=== PATIENT | male | born 1940 | race African-American/Black ===

== ENCOUNTER 2019-04-28 22:29 | Inpatient (IN) | payer MEDICARE, OTHER ==
--- NOTE | 2019-04-29 00:21 | PDOC ---
History of Present Illness - General Chief Complaint: Altered Mental Status Stated Complaint: AMS Time Seen by Provider: 04/28/19 23:31 - History of Present Illness Initial Comments: 04/29/19 00:19 79 y/o male PMHx atrial fibrillation, HTN, substance abuse with alcohol and cocaine presents sent to the ED by sister because of progressive inability to ambulate over the last 2 weeks and AMS. Pt is poor historian. Reached out to sister who explained above problems. According to her, pt often ambulates with a cane or a walker however lately, he has been staying in bed more as he c/o "being unable to walk". She denies any recent falls or trauma. As pt was poor history, I asked about baseline mental status; sister gave unclear answer but says that he knows his birthday, his name and where he is. Pt and sister also denies any fever, chills, cough, chest pain, SOB, abdominal pain. PSH: L knee surgery Social Hx: As above last use unclear ROS: Constitutional: no fever,no chills HEENT: no throat pain, no dysphagia Cardiovascular: no chest pain, no palpitations Respiratory: no cough shortness of breath Gastrointestinal: no Nausea and vomiting Genitourinary: no dysuria no urgency Musculoskeletal: no myalgia, R knee arthralgia Skin: no bruising Neurologic:no weakness Psych: no agitation, no anxiety PE: VSS GEN: NAD Neuro: AAOx2, CN 2-12 intact, no nystagmus, motor strength 5/5 in all muscle groups, sensation intact throughout, 2+ reflexes in U&L extremities HEENT: PERRLA, moist membrane, clear conjunctiva NECK: no JVD CHEST:vesicular breath sounds b/l HEART:irregularly irregular, no murmur, rubs or gallop ABDOMEN: + BS, soft and flat, NTND Extremities: 2+ pulses, no edema SKIN: no bruises MSK: R knee arthralgia, no joint tenderness Assessment: AMS secondary to delirium vs dementia vs cardiac vs electrolyte abnormality vs infection 04/29/19 00:36 Plan: cbc, cmp, Lactic acid, troponin, UA, Head CT, CXR, b/l Hip Xray, R knee Xray, B12, folate, TSH for reversible causes 04/29/19 01:19 CBC,CMP WBC 6.1 K/mm3 (4.0-10.0) 04/29/19 01:38 RBC 4.48 M/mm3 (4.00-5.60) 04/29/19 01:38 Hgb 14.9 GM/dL (11.7-16.9) 04/29/19 01:38 Hct 44.1 % (35.4-49) 04/29/19 01:38 MCV 98.5 fl (80-96) H 04/29/19 01:38 MCH 33.3 pg (25.7-33.7) 04/29/19 01:38 MCHC 33.8 g/dl (32.0-35.9) 04/29/19 01:38 RDW 13.6 % (11.9-15.9) 04/29/19 01:38 Plt Count 232 K/MM3 (134-434) D 04/29/19 01:38 MPV 9.2 fl (7.5-11.1) 04/29/19 01:38 Absolute Neuts (auto) 4.1 K/mm3 (1.5-8.0) 04/29/19 01:38 Neutrophils % 67.1 % (42.8-82.8) 04/29/19 01:38 Lymphocytes % 22.9 % (8-40) D 04/29/19 01:38 Monocytes % 8.4 % (3.8-10.2) 04/29/19 01:38 Eosinophils % 0.9 % (0-4.5) 04/29/19 01:38 Basophils % 0.7 % (0-2.0) 04/29/19 01:38 Nucleated RBC % 0 % (0-0) 04/29/19 01:38 Sodium 137 mmol/L (136-145) 04/29/19 02:00 Potassium 5.8 mmol/L (3.5-5.1) H 04/29/19 02:00 Chloride 104 mmol/L (98-107) 04/29/19 02:00 Carbon Dioxide 27 mmol/L (21-32) 04/29/19 02:00 Anion Gap 6 MMOL/L (8-16) L 04/29/19 02:00 BUN 13.2 mg/dL (7-18) 04/29/19 02:00 Creatinine 1.1 mg/dL (0.55-1.3) 04/29/19 02:00 Est GFR (CKD-EPI)AfAm 74.65 04/29/19 02:00 Est GFR (CKD-EPI)NonAf 64.41 04/29/19 02:00 POC Glucometer 106 UNITS (80-120) 04/29/19 01:00 Random Glucose 101 mg/dL (74-106) 04/29/19 02:00 Lactic Acid 1.7 mmol/L (0.4-2.0) 04/29/19 02:00 Calcium 9.6 mg/dL (8.5-10.1) 04/29/19 02:00 Total Bilirubin 0.5 mg/dL (0.2-1) 04/29/19 02:00 AST 52 U/L (15-37) H 04/29/19 02:00 ALT 24 U/L (13-61) 04/29/19 02:00 Alkaline Phosphatase 96 U/L (45-117) 04/29/19 02:00 Creatine Kinase 120 U/L (26-308) 04/29/19 02:00 Troponin I 0.02 ng/ml (0.00-0.05) 04/29/19 02:00 Total Protein 7.8 g/dl (6.4-8.2) 04/29/19 02:00 Albumin 3.5 g/dl (3.4-5.0) 04/29/19 02:00 Lipase 114 U/L (73-393) 04/29/19 02:00 hyperkalemia at 5.8 slight hemolyzed, mild AST elevation 52 otherwise normal chem. trop negative EKG with Afib with some TWI in V4-5 will repeat EKG and trend trop no urge to urinate yet - pending UA will repeat potassium at 6 04/29/19 02:57 imaging read by attending and I: b/l hip Xray with no acute fracture noted. Knee Xray with no acute fracture Head CT with e/o brain atrophy and ventricular dilation but no bleed or infarct noted 04/29/19 03:05 will send admission microblog 04/29/19 03:07 repeat EKG with afib and ST/TW abnormalities MDM 79 y/o male PMHx atrial fibrillation, HTN, substance abuse with alcohol and cocaine presents sent to the ED by sister because of progressive inability to ambulate over the last 2 weeks and AMS. With new TWI on EKG will need to r/o ACS. AMS may be due to dementia as per finding on CT 04/29/19 03:45 Pt admitted to tele Past History - Past Medical History Allergies/Adverse Reactions: Allergies Allergy/AdvReac Type Severity Reaction Status Date / Time No Known Allergies Allergy Verified 04/28/19 22:34 Home Medications: Ambulatory Orders Acetaminophen [Tylenol -] 500 mg PO Q4H #30 tablet 04/11/15 Diltiazem Cd [Cardizem Cd -] 120 mg PO DAILY #30 cap.cd.24h 12/14/15 Cardiac Disorders: Yes (Atrial Fibrillation) COPD: No - Immunization History Immunization Up to Date: No - Psycho Social/Smoking Cessation Hx Smoking History: Never smoked Have you smoked in the past 12 months: Yes Number of Cigarettes Smoked Daily: 5 'Breaking Loose' booklet given: 08/31/13 Hx Alcohol Use: No Drug/Substance Use Hx: No Substance Use Type: Alcohol, Cocaine *Physical Exam - Vital Signs Last Vital Signs Temp Pulse Resp BP Pulse Ox 98.7 F 95 H 18 133/89 97 04/28/19 22:31 04/28/19 22:31 04/28/19 22:31 04/28/19 22:31 04/28/19 22:31 ED Treatment Course - LABORATORY CBC & Chemistry Diagram: 04/29/19 01:38 04/29/19 02:00 Discharge - Discharge Information Problems reviewed: Yes Clinical Impression/Diagnosis: T wave inversion in electrocardiogram AMS (altered mental status) Qualifiers: Altered mental status type: unspecified Qualified Code(s): R41.82 - Altered mental status, unspecified Condition: Stable - Admission Yes - Follow up/Referral - Patient Discharge Instructions - Post Discharge Activity
[2019-04-29] MEDS ORDERED: SODIUM CHLORIDE 1,000 ML IV STA (01:57)
[2019-04-29 02:20] LABS: BASO % 0.7 % (0-2.0); EOS % 0.9 % (0-4.5); HEMATOCRIT 44.1 % (35.4-49); HEMOGLOBIN 14.9 GM/dL (11.7-16.9); LYMPH % 22.9 % (8-40); MCH 33.3 pg (25.7-33.7); MCHC 33.8 g/dl (32.0-35.9); MEAN CELL VOLUME 98.5 fl (80-96); MEAN PLT VOLUME 9.2 fl (7.5-11.1); MONO % 8.4 % (3.8-10.2); NEUT % 67.1 % (42.8-82.8); PLATELET COUNT 232 K/MM3 (134-434); RBC 4.48 M/mm3 (4.00-5.60); RDW 13.6 % (11.9-15.9); WHITE BLOOD COUNT 6.1 K/mm3 (4.0-10.0)
[2019-04-29 02:45] LABS: ALBUMIN 3.5 g/dl (3.4-5.0); BILIRUBIN,TOTAL 0.5 mg/dL (0.2-1); BLOOD UREA NITROGEN 13.2 mg/dL (7-18); CALCIUM 9.6 mg/dL (8.5-10.1); CREATININE 1.1 mg/dL (0.55-1.3); POTASSIUM 5.8 mmol/L (3.5-5.1); TOT PROT 7.8 g/dl (6.4-8.2)
--- NOTE | 2019-04-29 04:06 | PN ---
Teaching Attending Note Name of Resident: Timmy Sinha ATTENDING PHYSICIAN STATEMENT I saw and evaluated the patient. I reviewed the resident's note and discussed the case with the resident. I agree with the resident's findings and plan as documented. SUBJECTIVE: Patient is a 79 year old man with a PMH of Atrial fibrillation, HTN and Polysubstance abuse (alcohol, cocaine) who presents sent to the ED with sister because of progressive inability to ambulate over the last 2 weeks and AMS. Patient unable to provide details and his sister helped provide information. According to her, patient often ambulates with a cane or a walker, but lately he has been staying in bed more as he complained of "being unable to walk". She denies any recent falls or trauma. Per baseline mental status sister says that he knows his birthday, his name and where he is. Patient and sister deny any fever, chills, cough, chest pain, SOB, abdominal pain, nausea, vomiting, dysuria or diarrhea. Denies tobacco use. No sick contacts or recent travels. OBJECTIVE: Alert Vital Signs Period Temp Pulse Resp BP Sys/Brown Pulse Ox Last 24 Hr 98.7 F 95 18 133/89 97 HEENT: No Jaundice, eye redness or discharge, PERRLA, EOMI. Normocephalic, atraumatic. External ears are normal and hearing is grossly intact. No nasal discharge. Neck: Supple, nontender. No palpable adenopathy or thyromegaly. No JVD Chest: Good effort. Clear to auscultation and percussion. Heart: Irregularly irregular. No S3, rub or murmur Abdomen: Not distended, soft, nontender and no HSM. No rebound or guarding. Normal bowel sounds. Ext: Peripheral pulses intact. No leg edema. Skin: Warm and dry. No petechiae, rash or ecchymosis. Neuro: Alert. Oriented to person and place. CN 2-12 grossly intact. Sensation grossly intact in all four extremities and DTR are symmetric. Gait cannot be tested for safety reasons. Psych: Appropriate mood and affect. Good insight. Home Medications Medication Instructions Recorded Acetaminophen [Tylenol -] 500 mg PO Q4H #30 tablet 04/11/15 Diltiazem Cd [Cardizem Cd -] 120 mg PO DAILY #30 cap.cd.24h 12/14/15 Abnormal Lab Results 04/29/19 04/29/19 01:38 02:00 MCV 98.5 H Potassium 5.8 H Anion Gap 6 L AST 52 H ASSESSMENT AND PLAN: 1. Altered mental status/Inability to ambulate - Etiology unclear. May be related to alcohol-related chronic COLLE[employer] REP injury. No acute abnormality on hip and knee xrays as well as head CT scan. CXR shows elevated right hemidiaphragm - will get CT abdomen/pelvis and lumbosacral MRI. Implement fall precautions and consult Neurology, PT and remelt worker. Isolated hyperkalemia is unexplained. No EKG changes of hyperkalemia - EKG shows Afib with rate of 82, LVH and possible inferolateral ischemia. Initial troponin is negative. Will rule out ACS. Will repeat K+ stat and treat if still high. In the meantime will continue IV NS to enhance K+ excretion. Urinalysis and urine toxicology pending. Will continue comprehensive care for all of patients comorbid conditions. 2. Alcohol/Polysubstance abuse - Will monitor closely for drug withdrawal. Implement [facility] alcohol withdrawal protocol and do neurochecks. Implement seizure, fall and aspiration precautions. Treat with thiamine and folic acid and monitor electrolytes (Ca,Mg,K,P). Counseled patient about abstaining from alcohol or illicit drugs. Will consult community support specialist and refer to alcohol/drug detox upon discharge. 3. Hypertension - Restart suitable outpatient antihypertensive drugs when clinically appropriate. Revise regimen to ensure [id number] excellent BP control and deputy general counsel patient on the injurious effects of uncontrolled hypertension. Nonpharmacologic measures to control hypertension like weight loss , salt restriction and exercise discussed. Importance of adherence to treatment regimen and attainment of normotension emphasized. 4. DVT prophylaxis - Lovenox 40 mg SQ q 24 hours. 5. Advance directives - Full code
--- NOTE | 2019-04-29 04:29 | HP ---
CHIEF COMPLAINT: Gait Instability PCP: Dr. Bishnu Billy HISTORY OF PRESENT ILLNESS: 79 M PMH Afib, HTN, PSA( alcohol and cocaine) who presents today with gait instability and inability to ambulate. Patient is a poor historian and was brought in by sister who believes he has not been able to take care of himself and progressively unable to ambulate over the past 2 weeks. Patient complains of pain in his right knee, but has no complaints about his ability to walk. His sister reported no recent falls or trauma. ER course was notable for: (1) Hip, and knee x-rays did not show any acute fractures. Head CT prelim report did not show any acute bleeds but commented on small vessel infarcts of the left basal ganglia of indeterminate age which were too small to characterize. Chest X-Ray completed did not show any acute pathology but raised hemidiaphragm. (2) Labs showed hyperkalemia of 5.8 however lab reported hemolysis. (3) EKG showed t-wave inversions of V4 and V5, troponin of 0.02. initially Recent Travel: none PAST MEDICAL HISTORY: Afib, HTN, PSA PAST SURGICAL HISTORY: Denies Social History: Smoking: Denies Alcohol: Denies recent use- says last drink was months ago Drugs: Denies recent use of cocaine, will note date when last use was Lives at home by himself. Has not been able to take care of himself. Allergies No Known Allergies Allergy (Verified 04/28/19 22:34) HOME MEDICATIONS: Home Medications Medication Instructions Recorded Acetaminophen [Tylenol -] 500 mg PO Q4H #30 tablet 04/11/15 Diltiazem Cd [Cardizem Cd -] 120 mg PO DAILY #30 cap.cd.24h 12/14/15 REVIEW OF SYSTEMS CONSTITUTIONAL: Absent: fever, chills, diaphoresis, generalized weakness, malaise, loss of appetite, weight change HEENT: Absent: rhinorrhea, nasal congestion, throat pain, throat swelling, difficulty swallowing, mouth swelling, ear pain, eye pain, visual changes CARDIOVASCULAR: Absent: chest pain, syncope, palpitations, irregular heart rate, lightheadedness , peripheral edema RESPIRATORY: Absent: cough, shortness of breath, dyspnea with exertion, orthopnea, wheezing, stridor, hemoptysis GASTROINTESTINAL: Absent: abdominal pain, abdominal distension, nausea, vomiting, diarrhea, constipation, melena, hematochezia GENITOURINARY: Absent: dysuria, frequency, urgency, hesitancy, hematuria, flank pain, genital pain MUSCULOSKELETAL: Present: knee pain Absent: myalgia, arthralgia, joint swelling, back pain, neck pain SKIN: Absent: rash, itching, pallor HEMATOLOGIC/IMMUNOLOGIC: Absent: easy bleeding, easy bruising, lymphadenopathy, frequent infections ENDOCRINE: Absent: unexplained weight gain, unexplained weight loss, heat intolerance, cold intolerance NEUROLOGIC: Absent: headache, focal weakness or paresthesias, dizziness, unsteady gait, seizure, mental status changes, bladder or bowel incontinence PSYCHIATRIC: Absent: anxiety, depression, suicidal or homicidal ideation, hallucinations. PHYSICAL EXAMINATION Vital Signs - 24 hr 04/28/19 22:31 Temperature 98.7 F Pulse Rate 95 H Respiratory 18 Rate Blood Pressure 133/89 O2 Sat by Pulse 97 Oximetry (%) GENERAL: Awake, alert, oriented to self and place. Disheveled. HEAD: Normal with no signs of trauma. EYES: Pupils equal, round and reactive to light, EOMI. EARS, NOSE, THROAT: Moist mucus membranes. LUNGS: Breath sounds equal, clear to auscultation bilaterally. No wheezes, and no crackles. HEART: Irregularly irregular. ABDOMEN: Soft, nontender, not distended, normoactive bowel sounds, no guarding, no rebound, no masses. MUSCULOSKELETAL: Normal range of motion at all joints. Pain with extension of right hip joint. LOWER EXTREMITIES: 2+ pulses, warm, well-perfused. No calf tenderness. No peripheral edema. NEUROLOGICAL: Cranial nerves II-XII intact. Sensation intact. 5/5 strength upper and lower b/l extremities. PSYCHIATRIC: Cooperative. Good eye contact. Appropriate mood and affect. SKIN: Warm, dry, normal turgor, no rashes or lesions noted, normal capillary refill. Laboratory Results - last 24 hr 04/29/19 04/29/19 04/29/19 01:00 01:38 02:00 WBC 6.1 RBC 4.48 Hgb 14.9 Hct 44.1 MCV 98.5 H MCH 33.3 MCHC 33.8 RDW 13.6 Plt Count 232 D MPV 9.2 Absolute Neuts (auto) 4.1 Neutrophils % 67.1 Lymphocytes % 22.9 D Monocytes % 8.4 Eosinophils % 0.9 Basophils % 0.7 Nucleated RBC % 0 Sodium Potassium Chloride Carbon Dioxide Anion Gap BUN Creatinine Est GFR (CKD-EPI)AfAm Est GFR (CKD-EPI)NonAf POC Glucometer 106 Random Glucose Lactic Acid Calcium Total Bilirubin AST ALT Alkaline Phosphatase Creatine Kinase 120 Troponin I 0.02 Total Protein Albumin Lipase 114 04/29/19 04/29/19 02:00 02:00 WBC RBC Hgb Hct MCV MCH MCHC RDW Plt Count MPV Absolute Neuts (auto) Neutrophils % Lymphocytes % Monocytes % Eosinophils % Basophils % Nucleated RBC % Sodium 137 Potassium 5.8 H Chloride 104 Carbon Dioxide 27 Anion Gap 6 L BUN 13.2 Creatinine 1.1 Est GFR (CKD-EPI)AfAm 74.65 Est GFR (CKD-EPI)NonAf 64.41 POC Glucometer Random Glucose 101 Lactic Acid 1.7 Calcium 9.6 Total Bilirubin 0.5 AST 52 H ALT 24 Alkaline Phosphatase 96 Creatine Kinase Troponin I Total Protein 7.8 Albumin 3.5 Lipase ASSESSMENT/PLAN: 9 M PMH Afib, HTN, PSA( alcohol and cocaine) who presents today with gait instability and inability to ambulate. 1) AMS and difficulty ambulating - Patient reported to not be at baseline mental status, only oriented to self and place. - Was not able to walk patient safely by myself - Head CT negative, X-rays negative of hip and knee - Lumbosacral MRI ordered - PT ordered, fall precautions - Social work consulted - Neurology, Dr. Fair consulted 2) EKG changes, R/O ACS - T wave inversions present but patient complains of no chest pain - Initial Troponin and 2nd troponin 0.02. Will follow 3rd troponin. - K+ initailly 5.8, likely due to hemolysis, repeat of 4.3 3) Alcohol/ PSA - Patient currently denies any recent substance abuse - Utox ordered - Current CIWA is 0, will monitor for withdrawal, start librium/ativan protocol as appropriate. - F/U Mag/Phos 4) Hx of HTN - Patient currently normotensive - Medication reconcillation and restart BP meds when stable 5) Hx of Afib - Not on home a/c - Continue cardizem after medication reconcillation - Continous cardiac monitoring DVT: Lovenox 40 SQ Daily F: Oral Hydration E: Monitor CMP N: Sodium controlled diet Dispo: Admit to telemetry. Visit type - Emergency Visit Emergency Visit: Yes ED Registration Date: 04/29/19 Care time: The patient presented to the Emergency Department on the above date and was hospitalized for further evaluation of their emergent condition. - New Patient This patient is new to me today: Yes Date on this admission: 04/29/19 - Critical Care Critical Care patient: No ATTENDING PHYSICIAN STATEMENT I saw and evaluated the patient. I reviewed the resident's note and discussed the case with the resident. I agree with the resident's findings and plan as documented. SUBJECTIVE: OBJECTIVE: ASSESSMENT AND PLAN:
[2019-04-29] MEDS ORDERED: HEPARIN NA (PORCINE) 5,000 UNITS/ML 1ML VIAL SQ SCH (06:00)
[2019-04-29 06:24] LABS: BLOOD UREA NITROGEN 12.2 mg/dL (7-18); CALCIUM 9.4 mg/dL (8.5-10.1); CREATININE 0.9 mg/dL (0.55-1.3); POTASSIUM 4.2 mmol/L (3.5-5.1)
[2019-04-29] MEDS ORDERED: HEPARIN NA (PORCINE) 5,000 UNITS/ML 1ML VIAL ONE (06:35)
[2019-04-29] MEDS ORDERED: FOLIC ACID 1 MG TABLET (FP) PO ONE (07:45)
[2019-04-29 07:50] LABS: BASO % 0.8 % (0-2.0); EOS % 1.1 % (0-4.5); HEMATOCRIT 40.8 % (35.4-49); HEMOGLOBIN 13.7 GM/dL (11.7-16.9); LYMPH % 29.2 % (8-40); MCHC 33.6 g/dl (32.0-35.9); MEAN CELL VOLUME 98.2 fl (80-96); MEAN PLT VOLUME 9.1 fl (7.5-11.1); MONO % 10.1 % (3.8-10.2); NEUT % 58.8 % (42.8-82.8); PLATELET COUNT 207 K/MM3 (134-434); RBC 4.15 M/mm3 (4.00-5.60); RDW 13.4 % (11.9-15.9); WHITE BLOOD COUNT 4.9 K/mm3 (4.0-10.0)
[2019-04-29 08:03] LABS: URINE APPEARANCE CLEAR; URINE BILIRUBIN NEGATIVE (NEGATIVE); URINE COLOR YELLOW; URINE GLUCOSE (UA) NEGATIVE (NEGATIVE); URINE KETONE TRACE (NEGATIVE); URINE LEUK ESTERASE NEGATIVE (NEGATIVE); URINE NITRITE NEGATIVE (NEGATIVE); URINE PROTEIN TRACE (NEGATIVE)
[2019-04-29 08:18] LABS: MAGNESIUM 1.9 mg/dL (1.8-2.4); PHOSPHOROUS 2.9 mg/dL (2.5-4.9)
[2019-04-29] MEDS: ENOXAPARIN NA (PORCINE) 40 MG/0.4 ML DISP.SYRIN SQ SCH (09:58)
[2019-04-29] MEDS ORDERED: ENOXAPARIN NA (PORCINE) 40 MG/0.4 ML DISP.SYRIN SQ SCH (10:00)
--- NOTE | 2019-04-29 10:13 | PN ---
Physical Exam: SUBJECTIVE: Patient seen and examined at the bedside. Had generalized confusion and confusion about his diagnosis. Endorsed right knee pain. Denied cp, sob, abd pain, n/v/c/d, headaches, dizziness, lightheadedness, fever, chills, focal weakness, numbness, tingling. OBJECTIVE: Vital Signs Period Temp Pulse Resp BP Sys/Brown Pulse Ox Last 24 Hr 98.1 F-98.7 F 92-95 18-20 133-157/82-89 97-98 GENERAL: The patient is awake, alert, and oriented to self and "hospital". HEAD: Normal with no signs of trauma. EYES: PERRL, extraocular movements intact, conjunctiva clear. ENT: Oropharynx clear without exudates, dry mucous membranes. LUNGS: Breath sounds equal, clear to auscultation bilaterally, no wheezes, no crackles, no accessory muscle use. HEART: Normal rate and irregular rhythm, S1, S2 without murmur. ABDOMEN: Soft, nontender, nondistended, normoactive bowel sounds, no guarding, no rebound, no masses. EXTREMITIES: 1+ pulses, warm, well-perfused, no edema. Increased pain upon flexion and extension of the R knee. NEUROLOGICAL: Cranial nerves II through XII grossly intact. 4/5 muscle strength bilaterally on the lower extremities. PSYCH: Confused. Pleasant demeanor. SKIN: Warm, dry, normal turgor. Laboratory Results - last 24 hr 04/29/19 04/29/19 04/29/19 01:00 01:38 02:00 WBC 6.1 RBC 4.48 Hgb 14.9 Hct 44.1 MCV 98.5 H MCH 33.3 MCHC 33.8 RDW 13.6 Plt Count 232 D MPV 9.2 Absolute Neuts (auto) 4.1 Neutrophils % 67.1 Lymphocytes % 22.9 D Monocytes % 8.4 Eosinophils % 0.9 Basophils % 0.7 Nucleated RBC % 0 Sodium Potassium Chloride Carbon Dioxide Anion Gap BUN Creatinine Est GFR (CKD-EPI)AfAm Est GFR (CKD-EPI)NonAf POC Glucometer 106 Random Glucose Lactic Acid Calcium Phosphorus Magnesium Total Bilirubin AST ALT Alkaline Phosphatase Creatine Kinase 120 Troponin I 0.02 Total Protein Albumin Lipase 114 Vitamin B12 Serum Folate TSH Urine Color Urine Appearance Urine pH Ur Specific [place] Urine Protein Urine Glucose (UA) Urine Ketones Urine Blood Urine Nitrite Urine Bilirubin Urine Urobilinogen Ur Leukocyte Esterase 04/29/19 04/29/19 04/29/19 02:00 02:00 05:18 WBC RBC Hgb Hct MCV MCH MCHC RDW Plt Count MPV Absolute Neuts (auto) Neutrophils % Lymphocytes % Monocytes % Eosinophils % Basophils % Nucleated RBC % Sodium 137 139 Potassium 5.8 H 4.2 Chloride 104 107 Carbon Dioxide 27 25 Anion Gap 6 L 7 L BUN 13.2 12.2 Creatinine 1.1 0.9 Est GFR (CKD-EPI)AfAm 74.65 95.15 Est GFR (CKD-EPI)NonAf 64.41 82.09 POC Glucometer Random Glucose 101 102 Lactic Acid 1.7 Calcium 9.6 9.4 Phosphorus Magnesium Total Bilirubin 0.5 AST 52 H ALT 24 Alkaline Phosphatase 96 Creatine Kinase Troponin I 0.02 Total Protein 7.8 Albumin 3.5 Lipase Vitamin B12 341 Serum Folate 9 TSH 1.76 Urine Color Urine Appearance Urine pH Ur Specific [place] Urine Protein Urine Glucose (UA) Urine Ketones Urine Blood Urine Nitrite Urine Bilirubin Urine Urobilinogen Ur Leukocyte Esterase 04/29/19 04/29/19 04/29/19 05:45 06:30 06:30 WBC 4.9 RBC 4.15 Hgb 13.7 Hct 40.8 MCV 98.2 H MCH 33.0 MCHC 33.6 RDW 13.4 Plt Count 207 MPV 9.1 Absolute Neuts (auto) 2.9 Neutrophils % 58.8 Lymphocytes % 29.2 D Monocytes % 10.1 Eosinophils % 1.1 Basophils % 0.8 Nucleated RBC % 0 Sodium Potassium Chloride Carbon Dioxide Anion Gap BUN Creatinine Est GFR (CKD-EPI)AfAm Est GFR (CKD-EPI)NonAf POC Glucometer Random Glucose Lactic Acid Calcium Phosphorus 2.9 Magnesium 1.9 Total Bilirubin AST ALT Alkaline Phosphatase Creatine Kinase Troponin I Total Protein Albumin Lipase Vitamin B12 273 Serum Folate 7 TSH 1.43 D Urine Color Urine Appearance Urine pH Ur Specific [place] Urine Protein Urine Glucose (UA) Urine Ketones Urine Blood Urine Nitrite Urine Bilirubin Urine Urobilinogen Ur Leukocyte Esterase 04/29/19 06:55 WBC RBC Hgb Hct MCV MCH MCHC RDW Plt Count MPV Absolute Neuts (auto) Neutrophils % Lymphocytes % Monocytes % Eosinophils % Basophils % Nucleated RBC % Sodium Potassium Chloride Carbon Dioxide Anion Gap BUN Creatinine Est GFR (CKD-EPI)AfAm Est GFR (CKD-EPI)NonAf POC Glucometer Random Glucose Lactic Acid Calcium Phosphorus Magnesium Total Bilirubin AST ALT Alkaline Phosphatase Creatine Kinase Troponin I Total Protein Albumin Lipase Vitamin B12 Serum Folate TSH Urine Color Yellow Urine Appearance Clear Urine pH 5.0 Ur Specific [place] 1.025 Urine Protein Trace Urine Glucose (UA) Negative Urine Ketones Trace H Urine Blood Negative Urine Nitrite Negative Urine Bilirubin Negative Urine Urobilinogen 1.0 Ur Leukocyte Esterase Negative Active Medications Generic Name Dose Route Start Last Admin Trade Name [place] PRN Reason Stop Dose Admin Enoxaparin Sodium 40 mg 04/29/19 10:00 04/29/19 09:58 Lovenox - SQ 40 mg DAILY CHIDI Administration Thiamine HCl 100 mg 04/29/19 22:00 Vitamin B1 - PO HS CHIDI ASSESSMENT/PLAN: Adams Bird is a 79 male with a past medical history of Afib (not on AC), HTN , PSA (alcohol and cocaine) admitted for inability to ambulate. AMS and difficulty ambulating - Patient reported to not be at baseline mental status, only oriented to self and hospital. - Head CT noting moderate atrophy, lacunar infarct of left basal ganglia and left anterior periventricular white matter - X-rays negative of hip and knee - CT lumbar spine ordered - fall precautions - PT eval, walked 5 ft with moderate assistance - Social work consulted - Neurology, Dr. Fair consulted, recs appreciated EKG changes, R/O ACS - T wave inversions present but patient complains of no chest pain - troponins 0.02x3 - K+ initially 5.8, likely due to hemolysis, repeat of 4.3 - cardiology consulted, recs appreciated HTN - Patient currently normotensive - restart cardizem 120mg Afib - Not on home a/c, CHADSVAS 3 - Continue cardizem - cardiology consulted, recs appreciated - will continued aspirin as patient with history of falls and not good candidate for AC - Continous cardiac monitoring Hx of lacunar infarct - start aspirin and statin Prostatic enlargement with thickened urinary bladder - will require urology f/u Bibasilar atelectasis as noted on CT scan - patient currently asymptomatic - PT eval - incentive spirometry - will need outpatient PCP f/u DVT PPX - Lovenox 40 SQ Daily FEN - no standing fluids, encourage oral hydration - continue to monitor electrolytes and replete as necessary - sodium controlled diet Dispo - continue to monitor on telemetry Visit type - Emergency Visit Emergency Visit: Yes ED Registration Date: 04/29/19 Care time: The patient presented to the Emergency Department on the above date and was hospitalized for further evaluation of their emergent condition. - New Patient This patient is new to me today: Yes Date on this admission: 04/29/19 - Critical Care Critical Care patient: No
[2019-04-29 11:06] LABS: COCAINE, UR NEGATIVE ng/ml (CUTOFF=300); METHADONE, UR NEGATIVE ng/ml (CUTOFF=300); OPIATES, URI NEGATIVE ng/ml (CUTOFF=300); PHENCYCLIDINE,URINE NEGATIVE ng/ml (CUTOFF=25); URINE AMPHETAMINES NEGATIVE ng/ml (CUTOFF=500); URINE BARBITURATES NEGATIVE ng/ml (CUTOFF=200); URINE BENZODIAZEPINES NEGATIVE ng/ml (CUTOFF=200)
--- NOTE | 2019-04-29 11:52 | EKG ---
Test Reason : Blood Pressure : / mmHG Vent. Rate : 098 BPM Atrial Rate : 127 BPM P-R Int : 000 ms QRS Dur : 078 ms QT Int : 372 ms P-R-T Axes : 000 061 261 degrees QTc Int : 474 ms POOR DATA QUALITY, INTERPRETATION MAY BE ADVERSELY AFFECTED ATRIAL FIBRILLATION WITH PREMATURE VENTRICULAR OR ABERRANTLY CONDUCTED COMPLEXES VOLTAGE CRITERIA FOR LEFT VENTRICULAR HYPERTROPHY ABNORMAL ECG WHEN COMPARED WITH ECG OF 12-DEC-2015 19:43, T WAVE INVERSION MORE EVIDENT IN INFERIOR LEADS INVERTED T WAVES HAVE REPLACED NONSPECIFIC T WAVE ABNORMALITY IN LATERAL LEADS Confirmed by FREDA DIAS MD ([id number]) on 04/29/2019 11:52:28 AM Referred By: Confirmed By:FREDA DIAS MD
--- NOTE | 2019-04-29 11:52 | EKG ---
Test Reason : Blood Pressure : / mmHG Vent. Rate : 082 BPM Atrial Rate : 416 BPM P-R Int : 000 ms QRS Dur : 078 ms QT Int : 410 ms P-R-T Axes : 000 071 -76 degrees QTc Int : 479 ms POOR DATA QUALITY, INTERPRETATION MAY BE ADVERSELY AFFECTED ATRIAL FIBRILLATION MODERATE VOLTAGE CRITERIA FOR LVH, MAY BE NORMAL VARIANT ABNORMAL ECG WHEN COMPARED WITH ECG OF 29-APR-2019 01:10, T WAVE INVERSION LESS EVIDENT IN LATERAL LEADS Confirmed by FREDA DIAS MD ([id number]) on 04/29/2019 11:51:37 AM Referred By: Confirmed By:FREDA DIAS MD
[2019-04-29] MEDS ORDERED: FLU VACCINE QUAD 60 MCG/0.5 ML (MDV 19-20) IM ONE (14:00)
--- NOTE | 2019-04-29 15:53 | CON.NEURO ---
Consult - Past Medical History Cardio/Vascular: Yes: AFIB. No: Aneurysm, Aortic Insufficiency, Aortic Stenosis , CAD, CHF, Deep Vein Thrombosis, HTN, Hyperlipdemia, [place], Mitral Insufficiency, Mitral Stenosis, Murmur, Pulmonary Hypertension, Other - Alcohol/Substance Use Hx Alcohol Use: Yes - Smoking History Smoking history: Former smoker Have you smoked in the past 12 months: Yes Aproximately how many cigarettes per day: 5 If you are a former smoker, when did you quit?: 6 months ago Home Medications - Allergies Allergies/Adverse Reactions: Allergies Allergy/AdvReac Type Severity Reaction Status Date / Time No Known Allergies Allergy Verified 04/28/19 22:34 - Home Medications Home Medications: Ambulatory Orders Acetaminophen [Tylenol -] 500 mg PO Q4H #30 tablet 04/11/15 Diltiazem Cd [Cardizem Cd -] 120 mg PO DAILY #30 cap.cd.24h 12/14/15 Physical Exam-Neuro Vital Signs: Vital Signs Temperature 98.3 F 04/29/19 15:03 Pulse Rate 86 04/29/19 15:03 Respiratory Rate 22 H 04/29/19 15:03 Blood Pressure 140/86 04/29/19 15:03 O2 Sat by Pulse Oximetry (%) 95 04/29/19 13:46 Labs: CBC, BMP 04/29/19 06:30 04/29/19 05:18 Assessment/Plan CC Balance difficulty HPI 79 year old male history of atrial fibrillation, htn , polysubstance abuse ( alcohol and cocaine). Vignesh lives at home and presented to hospital for difficulty walking. He has not been physical active. He has episode of fecal incontinence, he denies any tingling or numbness or lower extrmeity weakness . Vignesh had ct head and it was wnl. PAST MEDICAL HISTORY: Afib, HTN, PSA PAST SURGICAL HISTORY: Denies Social History: Smoking: Denies Alcohol: Denies recent use- says last drink was months ago Drugs: Denies recent use of cocaine, will note date when last use was Lives at home by himself. Has not been able to take care of himself. Allergies No Known Allergies Allergy (Verified 04/28/19 22:34) HOME MEDICATIONS: Home Medications Medication Instructions Recorded Acetaminophen [Tylenol -] 500 mg PO Q4H #30 tablet 04/11/15 Diltiazem Cd [Cardizem Cd -] 120 mg PO DAILY #30 cap.cd.24h 12/14/15 ROS,FH reviewed in chart NEUROLOGICAL EXAMINATOIN Alert oriented x 3, speech is normal, neck is supple EOMI, pupils reactive no facial asymmetry moving all extrmeity lower extremity there is good strength of hip flexor, extensor , knee flexion and extensor , ankle flexion and extension sensation is normal reflex are grade 1 generalized there is severe quadricep weakness , ftn is normal, hts is midly dysmetric ct head i sunremarkable Assessment/Plan 79 year old male history of atrial fibrillation, htn , polysubstance abuse ( alcohol and cocaine), presnted with chronic slowly difficulty with gait, most likley cerebellar , alcohol related and severe deconditioning Plan: physical therapy ct of L spine can be obtained as per primary team plan folic acid, thiamine and mvi he may need short term rehab there is no need for mri of spine as supsician for cord compression is very low Thanking you so much Moe Fair MD
--- NOTE | 2019-04-29 16:09 | CON.CARD ---
Consult Consult Specialty:: Cardiology Referred by:: Medicine Reason for Consultation:: afib - History of Present Illness Chief Complaint: alt mental status History of Present Illness: 79M h/o afib, HTN, alcohol and cocaine abuse p/w gait instability, altered mental status, fall. Limited hx from pt, poor historian, obtained from chart. 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 No chest pain, palps, dizziness, dyspnea - Past Medical History Cardio/Vascular: Yes: AFIB. No: Aneurysm, Aortic Insufficiency, Aortic Stenosis , CAD, CHF, Deep Vein Thrombosis, HTN, Hyperlipdemia, [place], Mitral Insufficiency, Mitral Stenosis, Murmur, Pulmonary Hypertension, Other - Alcohol/Substance Use Hx Alcohol Use: Yes - Smoking History Smoking history: Former smoker Have you smoked in the past 12 months: Yes Aproximately how many cigarettes per day: 5 If you are a former smoker, when did you quit?: 6 months ago Home Medications - Allergies Allergies/Adverse Reactions: Allergies Allergy/AdvReac Type Severity Reaction Status Date / Time No Known Allergies Allergy Verified 04/28/19 22:34 - Home Medications Home Medications: Ambulatory Orders Diltiazem Cd [Cardizem Cd -] 120 mg PO DAILY #30 cap.cd.24h 12/14/15 Family Medical History Family History: Unremarkable Review of Systems - Review of Systems Constitutional: reports: No Symptoms Eyes: reports: No Symptoms HENT: reports: No Symptoms Neck: reports: No Symptoms Cardiovascular: reports: No Symptoms Respiratory: reports: No Symptoms Gastrointestinal: reports: No Symptoms Genitourinary: reports: No Symptoms Musculoskeletal: reports: No Symptoms Integumentary: reports: No Symptoms Neurological: reports: No Symptoms Endocrine: reports: No Symptoms Hematology/Lymphatic: reports: No Symptoms Psychiatric: reports: No Symptoms Vital Signs: Vital Signs Temperature 98.3 F 04/29/19 15:03 Pulse Rate 86 04/29/19 15:03 Respiratory Rate 22 H 04/29/19 15:03 Blood Pressure 140/86 04/29/19 15:03 O2 Sat by Pulse Oximetry (%) 95 04/29/19 13:46 Constitutional: Yes: No Distress, Calm Eyes: Yes: Conjunctiva Clear, EOM Intact HENT: Yes: Atraumatic, Normocephalic Neck: Yes: Supple, Trachea Midline Respiratory: Yes: Regular, CTA Bilaterally Gastrointestinal: Yes: Normal Bowel Sounds, Soft Cardiovascular: Yes: Pulse Irregular JVD: No Heart Sounds: Yes: S1, S2 Extremities: No: Cold Edema: No Neurological: Yes: Alert Psychiatric: No: Agitated - Other Data Labs, Other Data: CBC, BMP 04/29/19 06:30 04/29/19 05:18 Troponin, BNP 04/29/19 04/29/19 04/29/19 02:00 05:18 12:00 Troponin I 0.02 0.02 < 0.02 Troponin, BNP 04/29/19 04/29/19 04/29/19 02:00 05:18 12:00 Troponin I 0.02 0.02 < 0.02 Assessment/Plan EKG: afib, artifact, PVC, TWI V5-6 CXR: no acute process tele: afib, rate ok abnormal EKG - no signs ACS, however poor historian - EKG with significant artifact as well - trop neg x 3 - check echo alt mental status, gait instability - manage per primary, neuro Afib - cont diltiazem - [id number] warrants AC, however given history of gait instability, falls likely not a candidate for AC - PT evaluation - cont aspirin EtOH, cocaine abuse - manage per primary - denies recent use HTN - cont diltiazem HLD - cont statin
--- NOTE | 2019-04-29 18:41 | PN ---
Teaching Attending Note Name of Resident: Yash Muller ATTENDING PHYSICIAN STATEMENT I saw and evaluated the patient. I reviewed the resident's note and discussed the case with the resident. I agree with the resident's findings and plan as documented. SUBJECTIVE: Patient is comfortable with no acute distress, no shortness of breath. OBJECTIVE: Vital Signs Temperature 98.3 F 04/29/19 15:03 Pulse Rate 86 04/29/19 15:03 Respiratory Rate 22 H 04/29/19 15:03 Blood Pressure 140/86 04/29/19 15:03 O2 Sat by Pulse Oximetry (%) 95 04/29/19 13:46 Initial Vital Signs Temp Pulse Resp BP Pulse Ox 98.7 F 95 H 18 133/89 97 04/28/19 22:31 04/28/19 22:31 04/28/19 22:31 04/28/19 22:31 04/28/19 22:31 GENERAL: The patient is awake, alert, oriented, in no acute distress. HEAD: Normal with no signs of trauma. EYES: PERRL, extraocular movements intact, sclera anicteric, conjunctiva clear. ENT: Ears normal, oropharynx clear without exudates, moist mucous membranes. NECK: Trachea midline, full range of motion, supple. LUNGS: Breath sounds equal, clear to auscultation bilaterally, no wheezes, no crackles, no accessory muscle use. HEART: Regular rate and rhythm, S1, S2 without murmur, rub or gallop. ABDOMEN: Soft, NT,ND, normoactive bowel sounds, no guarding, no rebound, no hepatosplenomegaly, no masses. EXTREMITIES: 2+ pulses, warm, well-perfused, no edema. NEUROLOGICAL: Cranial nerves II through XII grossly intact. Normal speech, gait not observed. PSYCH: Normal mood, normal affect. SKIN: Warm, dry, normal turgor, no rashes or lesions noted CBCD WBC 4.9 K/mm3 (4.0-10.0) 04/29/19 06:30 RBC 4.15 M/mm3 (4.00-5.60) 04/29/19 06:30 Hgb 13.7 GM/dL (11.7-16.9) 04/29/19 06:30 Hct 40.8 % (35.4-49) 04/29/19 06:30 MCV 98.2 fl (80-96) H 04/29/19 06:30 MCHC 33.6 g/dl (32.0-35.9) 04/29/19 06:30 RDW 13.4 % (11.9-15.9) 04/29/19 06:30 Plt Count 207 K/MM3 (134-434) 04/29/19 06:30 MPV 9.1 fl (7.5-11.1) 04/29/19 06:30 CMP Sodium 139 mmol/L (136-145) 04/29/19 05:18 Potassium 4.2 mmol/L (3.5-5.1) 04/29/19 05:18 Chloride 107 mmol/L (98-107) 04/29/19 05:18 Carbon Dioxide 25 mmol/L (21-32) 04/29/19 05:18 Anion Gap 7 MMOL/L (8-16) L 04/29/19 05:18 BUN 12.2 mg/dL (7-18) 04/29/19 05:18 Creatinine 0.9 mg/dL (0.55-1.3) 04/29/19 05:18 Random Glucose 102 mg/dL (74-106) 04/29/19 05:18 Calcium 9.4 mg/dL (8.5-10.1) 04/29/19 05:18 Total Bilirubin 0.5 mg/dL (0.2-1) 04/29/19 02:00 AST 52 U/L (15-37) H 04/29/19 02:00 ALT 24 U/L (13-61) 04/29/19 02:00 Alkaline Phosphatase 96 U/L (45-117) 04/29/19 02:00 Total Protein 7.8 g/dl (6.4-8.2) 04/29/19 02:00 Albumin 3.5 g/dl (3.4-5.0) 04/29/19 02:00 CARDIAC ENZYMES Creatine Kinase 120 U/L (26-308) 04/29/19 02:00 Troponin I < 0.02 ng/ml (0.00-0.05) 04/29/19 12:00 Current Medications Generic Name Dose Route Start Last Admin Trade Name Freq PRN Reason Stop Dose Admin Aspirin 81 mg 04/30/19 10:00 Asa - PO DAILY [facility] Atorvastatin Calcium 40 mg 04/29/19 22:00 Lipitor - PO HS [facility] Diltiazem HCl 120 mg 04/30/19 10:00 Cardizem Cd - PO DAILY [facility] Enoxaparin Sodium 40 mg 04/29/19 10:00 04/29/19 09:58 Lovenox - SQ 40 mg DAILY [facility] Administration Multivitamins/Minerals/Vitamin C 1 tab 04/30/19 10:00 Tab-A-Vit - PO DAILY [facility] Thiamine HCl 100 mg 04/29/19 22:00 Vitamin B1 - PO HS [facility] Home Medications Medication Instructions Recorded Diltiazem Cd [Cardizem Cd -] 120 mg PO DAILY #30 cap.cd.24h 12/14/[address] noting moderate atrophy, lacunar infarct of left basal ganglia and left anterior periventricular white matter X-rays negative of hip and knee ASSESSMENT AND PLAN: Patient is a 79yom with a Pmhx of Afib (not on AC), HTN, PSA (alcohol and cocaine) admitted for inability to ambulate. # AMS : unknown baseline #Difficulty ambulating will order CT lumbar spine ordered, fall precautions Discussed with Neurology, Dr. aFir , will get ct of L-spine to r/o stenosis # EKG changes:T wave inversions , troponins 0.02x3, cardiology consulted, recs appreciated #HTN: restart cardizem 120mg #Afib:on cardizem (Not on home a/c) , CHADSVASC 3, #Hx of lacunar infarct: continue aspirin and statin #Prostatic enlargement with thickened urinary bladder: urology f/u # Bibasilar atelectasis as noted on CT scan, incentive spirometry, asymptomatic , PT eval outpatient PCP f/u DVT PPX: Lovenox 40 SQ Daily
[2019-04-29] MEDS: THIAMINE HCL 100 MG TABLET (FP) PO SCH (22:36)
[2019-04-29] MEDS: ATORVASTATIN CA 40 MG TABLET (FP) PO SCH (22:36)
--- NOTE | 2019-04-30 01:14 | PDOC ---
Documentation entered by Fabian Garcia SCRIBE, acting as scribe for Cruz Michel DO. Cruz Michel DO: This documentation has been prepared by the Jose jasso Nirvannie, SCRIBE, under my direction and personally reviewed by me in its entirety. I confirm that the documentation accurately reflects all work, treatment, procedures, and medical decision making performed by me. Attending Attestation - Resident Resident Name: Sana Mendiola - HPI HPI: 04/29/19 00:51 The patient is a 79 year old male, with a significant past medical history of atrial fibrillation, HTN, polysubstance abuse (alcohol and cocaine), and dementia, who presents to the emergency department with failure to thrive and progressively worsening mental status. As per patients sister, he lives alone and his house is noted to be a mess and he is unable to clean himself with associated decreased mental capacity. Patient is awake and alert to person but, confused. Allergies: NKDA - Physicial Exam PE: 04/29/19 00:52 +GENERAL: Smells of urine, poorly kept. Awake and alert. No acute distress. HEENT: Normocephalic, atraumatic. PERRLA, EOMI. No conjunctival pallor. Sclera are non- icteric. Moist mucous membranes. Oropharynx is clear. NECK: Supple. Full ROM. No JVD. Carotid pulses 2+ and symmetric, without bruits. No thyromegaly. No lymphadenopathy. CARDIOVASCULAR: Regular rate and rhythm. No murmurs, rubs, or gallops. Distal pulses are 2+ and symmetric. PULMONARY: No evidence of respiratory distress. Lungs clear to auscultation bilaterally. No wheezing, rales or rhonchi. ABDOMINAL: Soft. Non-tender. Non-distended. No rebound or guarding. No organomegaly. Normoactive bowel sounds. MUSCULOSKELETAL Normal range of motion at all joints. No bony deformities or tenderness. No CVA tenderness. EXTREMITIES: No cyanosis. No clubbing. No edema. No calf tenderness. SKIN: Warm and dry. Normal capillary refill. No rashes. No jaundice. +NEUROLOGICAL: Alert, awake, alert to person and place but not time, confused. Follows simple commands. Answers simple questions. CN II-XII intact wo gross deficits. When asked what month patient says yes. Unclear baseline. 04/30/19 01:24 - Medical Decision Making 04/29/19 The patient is a 79 year old male, with a significant past medical history of atrial fibrillation, HTN, polysubstance abuse (alcohol and cocaine), and dementia, who presents to the emergency department with failure to thrive and progressively worsening mental status cannot take care of himself as per sister who called ems. Assessment and Plan: Patient presenting for worsening mental status and failure to thrive. Will evaluate for AMS and occult infection. Plan isl CT head UA IV fluids EKG Cardiac enzymes Admission for failure to thrive 04/29/19 01:27 Delay in care chemistry went down for a number of hours and transfer was being initiated when chemistry lab was reinstated. 04/29/19 01:50 EKG depicts atrial fibrillation at 98bpm motion artifact. Nonspecific ST abnormality less than 1mm ST depressions in V5 and V6, PVC, performed at 1:10 04/30/19 01:26
[2019-04-30 08:17] LABS: BASO % 0.5 % (0-2.0); EOS % 2.6 % (0-4.5); HEMATOCRIT 41.8 % (35.4-49); HEMOGLOBIN 14.3 GM/dL (11.7-16.9); LYMPH % 36.7 % (8-40); MCH 33.9 pg (25.7-33.7); MCHC 34.2 g/dl (32.0-35.9); MEAN CELL VOLUME 99.3 fl (80-96); MEAN PLT VOLUME 9.1 fl (7.5-11.1); MONO % 10.2 % (3.8-10.2); PLATELET COUNT 220 K/MM3 (134-434); RBC 4.22 M/mm3 (4.00-5.60); RDW 13.7 % (11.9-15.9); WHITE BLOOD COUNT 4.1 K/mm3 (4.0-10.0)
[2019-04-30 08:32] LABS: BLOOD UREA NITROGEN 9.2 mg/dL (7-18); CALCIUM 9.3 mg/dL (8.5-10.1); CREATININE 0.9 mg/dL (0.55-1.3); MAGNESIUM 1.8 mg/dL (1.8-2.4); PHOSPHOROUS 3.3 mg/dL (2.5-4.9); POTASSIUM 4.2 mmol/L (3.5-5.1)
--- NOTE | 2019-04-30 09:23 | PN ---
Teaching Attending Note Name of Resident: Yash Muller ATTENDING PHYSICIAN STATEMENT I saw and evaluated the patient. I reviewed the resident's note and discussed the case with the resident. I agree with the resident's findings and plan as documented. SUBJECTIVE: Comfortable with no acute distress. OBJECTIVE: Vital Signs Temperature 98.3 F 04/30/19 05:37 Pulse Rate 90 04/30/19 05:37 Respiratory Rate 20 04/30/19 05:37 Blood Pressure 130/85 04/30/19 05:37 O2 Sat by Pulse Oximetry (%) 98 04/29/19 21:00 GENERAL: The patient is awake, alert, oriented, in no acute distress. HEAD: Normal with no signs of trauma. EYES: PERRL, extraocular movements intact, sclera anicteric, conjunctiva clear. ENT: Ears normal, oropharynx clear without exudates, moist mucous membranes. NECK: Trachea midline, full range of motion, supple. LUNGS: Breath sounds equal, clear to auscultation bilaterally, no wheezes, no crackles, no accessory muscle use. HEART: Regular rate and rhythm, S1, S2 without murmur, rub or gallop. ABDOMEN: Soft, NT,ND, normoactive bowel sounds, no guarding, no rebound, no hepatosplenomegaly, no masses. EXTREMITIES: 2+ pulses, warm, well-perfused, no edema. NEUROLOGICAL: Cranial nerves II through XII grossly intact. Normal speech, gait not observed. PSYCH: Normal mood, normal affect. SKIN: Warm, dry, normal turgor, no rashes or lesions noted CBCD WBC 4.1 K/mm3 (4.0-10.0) 04/30/19 06:08 RBC 4.22 M/mm3 (4.00-5.60) 04/30/19 06:08 Hgb 14.3 GM/dL (11.7-16.9) 04/30/19 06:08 Hct 41.8 % (35.4-49) 04/30/19 06:08 MCV 99.3 fl (80-96) H 04/30/19 06:08 MCHC 34.2 g/dl (32.0-35.9) 04/30/19 06:08 RDW 13.7 % (11.9-15.9) 04/30/19 06:08 Plt Count 220 K/MM3 (134-434) 04/30/19 06:08 MPV 9.1 fl (7.5-11.1) 04/30/19 06:08 CMP Sodium 140 mmol/L (136-145) 04/30/19 06:08 Potassium 4.2 mmol/L (3.5-5.1) 04/30/19 06:08 Chloride 107 mmol/L (98-107) 04/30/19 06:08 Carbon Dioxide 29 mmol/L (21-32) 04/30/19 06:08 Anion Gap 5 MMOL/L (8-16) L 04/30/19 06:08 BUN 9.2 mg/dL (7-18) 04/30/19 06:08 Creatinine 0.9 mg/dL (0.55-1.3) 04/30/19 06:08 Random Glucose 87 mg/dL (74-106) 04/30/19 06:08 Calcium 9.3 mg/dL (8.5-10.1) 04/30/19 06:08 Total Bilirubin 0.5 mg/dL (0.2-1) 04/29/19 02:00 AST 52 U/L (15-37) H 04/29/19 02:00 ALT 24 U/L (13-61) 04/29/19 02:00 Alkaline Phosphatase 96 U/L (45-117) 04/29/19 02:00 Total Protein 7.8 g/dl (6.4-8.2) 04/29/19 02:00 Albumin 3.5 g/dl (3.4-5.0) 04/29/19 02:00 CARDIAC ENZYMES Creatine Kinase 120 U/L (26-308) 04/29/19 02:00 Troponin I < 0.02 ng/ml (0.00-0.05) 04/29/19 12:00 Current Medications Generic Name Dose Route Start Last Admin Trade Name Freq PRN Reason Stop Dose Admin Aspirin 81 mg 04/30/19 10:00 Asa - PO DAILY [facility] Atorvastatin Calcium 40 mg 04/29/19 22:00 04/29/19 22:36 Lipitor - PO 40 mg HS [facility] Administration Diltiazem HCl 120 mg 04/30/19 10:00 Cardizem Cd - PO DAILY [facility] Enoxaparin Sodium 40 mg 04/29/19 10:00 04/29/19 09:58 Lovenox - SQ 40 mg DAILY [facility] Administration Multivitamins/Minerals/Vitamin C 1 tab 04/30/19 10:00 Tab-A-Vit - PO DAILY [facility] Thiamine HCl 100 mg 04/29/19 22:00 04/29/19 22:36 Vitamin B1 - PO 100 mg HS [facility] Administration Home Medications Medication Instructions Recorded Diltiazem Cd [Cardizem Cd -] 120 mg PO DAILY #30 cap.cd.24h 12/14/[address] noting moderate atrophy, lacunar infarct of left basal ganglia and left anterior periventricular white matter X-rays negative of hip and knee CT abdomen and pelvis: elevated right hemidiaphram with bibasilar atelectasis, prostatic enlargment with thickened urinary bladder fecal retention ,no evidence of acute pathology within the abdomen or pelvis. LS CT: reviewed disc protrusion contacting the right S1 nerve. ASSESSMENT AND PLAN: Patient is a 79yom with a Pmhx of Afib (not on AC), HTN, PSA (alcohol and cocaine) admitted for inability to ambulate. # AMS : unknown baseline #Difficulty ambulating will order CT lumbar spine ordered, Fall precautions, Discussed with Neurology, Dr. Fair ,Ct of LS : disc protrusion contacting the right S1 nerve # EKG changes:T wave inversions ,troponins 0.02x3, cardiology consulted, recs appreciated #HTN: restart cardizem 120mg #Afib:on cardizem (Not on home a/c) , CHADSVASC 3, #Hx of lacunar infarct: continue aspirin and statin #Prostatic enlargement with thickened urinary bladder: urology f/u # Bibasilar atelectasis as noted on CT scan, incentive spirometry, asymptomatic , PT eval outpatient PCP f/u DVT PPX: Lovenox 40 SQ Daily
[2019-04-30] MEDS ORDERED: ASPIRIN 81 MG CHEWABLE TABLETS PO SCH (10:00)
[2019-04-30] MEDS ORDERED: MULTIVITAMINS (DAILY MVI) TABLET (FP) PO SCH (10:00)
[2019-04-30] MEDS ORDERED: predniSONE 20 MG TABLET (UD) PO SCH (10:00)
--- NOTE | 2019-04-30 10:04 | PN ---
Progress Note (short form) - Note Progress Note: 79 year old male history of atrial fibrillation, htn , polysubstance abuse ( alcohol and cocaine). Vignesh lives at home and presented to hospital for difficulty walking. He has not been physical active. He has episode of fecal incontinence, he denies any tingling or numbness or lower extrmeity weakness . Vignesh had ct head and it was wnl. Vignesh has ct of L spine and there is severe djd. He denies any back pain or new focal neuro symptoms. NEUROLOGICAL EXAMINATOIN Alert oriented x 3, speech is normal, neck is supple EOMI, pupils reactive no facial asymmetry moving all extrmeity lower extremity there is good strength of hip flexor, extensor , knee flexion and extensor , ankle flexion and extension sensation is normal reflex are grade 1 generalized there is severe quadricep weakness , ftn is normal, hts is midly dysmetric ct head i sunremarkable Assessment/Plan 79 year old male history of atrial fibrillation, htn , polysubstance abuse ( alcohol and cocaine), presnted with chronic slowly difficulty with gait, most likley cerebellar , alcohol related and severe deconditioning Plan: physical therapy CT fo L spine showed severe djd folic acid, thiamine and mvi he may need short term rehab At this time, there is no suspician for cord compression,Mri of Spine is not needed Thanking you so much Moe Fair MD
--- NOTE | 2019-04-30 10:05 | PN ---
Progress Note, Physician Chief Complaint: sitting comfortably No CP No SOB tele: AF, 70s - Current Medication List Current Medications: Active Medications Aspirin (Asa -) 81 mg PO DAILY [facility] Atorvastatin Calcium (Lipitor -) 40 mg PO HS [facility] Last Admin: 04/29/19 22:36 Dose: 40 mg Diltiazem HCl (Cardizem Cd -) 120 mg PO DAILY [facility] Enoxaparin Sodium (Lovenox -) 40 mg SQ DAILY [facility] Last Admin: 04/29/19 09:58 Dose: 40 mg Multivitamins/Minerals/Vitamin C (Tab-A-Vit -) 1 tab PO DAILY [facility] Prednisone (Deltasone -) 40 mg PO DAILY [facility] Thiamine HCl (Vitamin B1 -) 100 mg PO HS [facility] Last Admin: 04/29/19 22:36 Dose: 100 mg - Objective Vital Signs: Vital Signs Temperature 98.3 F 04/30/19 05:37 Pulse Rate 90 04/30/19 05:37 Respiratory Rate 20 04/30/19 05:37 Blood Pressure 130/85 04/30/19 05:37 O2 Sat by Pulse Oximetry (%) 98 04/29/19 21:00 Constitutional: Yes: No Distress, Calm Cardiovascular: Yes: Pulse Irregular Respiratory: Yes: CTA Bilaterally Gastrointestinal: Yes: Soft Edema: No Neurological: Yes: Alert, Oriented Labs: CBC, BMP 04/30/19 06:08 04/30/19 06:08 - ....Imaging EKG: Image Reviewed Assessment/Plan Assessment/Plan EKG: afib, artifact, PVC, TWI V5-6 CXR: no acute process tele: afib, rate ok abnormal EKG: - no signs ACS, however poor historian - EKG with significant artifact as well - trop neg x 3 - check echo alt mental status, gait instability: - manage per primary, neuro Afib: rate controlled. Can d/c tele - cont diltiazem - [id number] warrants AC, however given history of gait instability, falls likely not a candidate for AC - PT evaluation - cont aspirin EtOH, cocaine abuse: - manage per primary - denies recent use HTN: - cont diltiazem HLD: - cont statin
[2019-04-30] MEDS: ENOXAPARIN NA (PORCINE) 40 MG/0.4 ML DISP.SYRIN SQ SCH (10:56)
--- NOTE | 2019-04-30 10:58 | ECHO ---
Name: LAUREN ALVAREZ Exam:Adult Echocardiogram Study Date: 04/30/2019 10:07 AM Age: 79 yrs Reason For Study: Abnormal Ekg Height: 69 in Weight: 150 lb BSA: 1.8 m2 MMode/2D Measurements & Calculations RVDd: 2.1 cm Ao root diam: 2.9 cm IVSd: 1.6 cm LA dimension: 4.4 cm LVIDd: 4.0 cm ACS: 1.8 cm LVIDs: 2.5 cm LVPWd: 1.6 cm EDV(Teich): 71.1 ml LVOT diam: 2.0 cm ESV(Teich): 23.4 ml LAV (MOD-bp): 78.0 ml TAPSE: 2.2 cm RV S Alan: 10.5 cm/sec Doppler Measurements & Calculations MV E max alan: 63.2 cm/sec Ao V2 max: 109.8 cm/sec MV A max alan: 21.7 cm/sec Ao max P.8 mmHg MV E/A: 2.9 Ao V2 mean: 75.0 cm/sec MV dec time: 0.20 sec Ao mean P.6 mmHg Ao V2 VTI: 18.0 cm CLIFFORD(I,D): 2.4 cm2 CLIFFORD(V,D): 2.3 cm2 LV V1 max P.8 mmHg MR max alan: 564.7 cm/sec LV V1 mean P.3 mmHg MR max P.6 mmHg LV V1 max: 83.4 cm/sec LV V1 mean: 52.3 cm/sec LV V1 VTI: 14.2 cm SV(LVOT): 43.8 ml TR max alan: 223.0 cm/sec TR max P.3 mmHg PA V2 max: 73.3 cm/sec Med Peak E' Alan: 6.3 cm/sec PA max P.1 mmHg Med E/e': 10.0 PA acc slope: 523.0 cm/sec2 Lat Peak E' Alan: 2.5 cm/sec PA acc time: 0.09 sec Lat E/e': 24.9 PA pr(Accel): 37.8 mmHg Left Ventricle There is moderate concentric left ventricular hypertrophy. The left ventricle is hyperdynamic. Ejecti on Fraction = 65-70%. The left ventricular wall motion is normal. Right Ventricle The right ventricle is normal in size and function. Atria The left atrium is mildly dilated. Mitral Valve The mitral valve is normal in structure and function. There is no mitral valve stenosis. There is mil d mitral regurgitation. Tricuspid Valve The tricuspid valve is normal in structure and function. There is mild tricuspid regurgitation. Right ventricular systolic pressure is normal. Aortic Valve There is mild aortic sclerosis.;. No hemodynamically significant valvular aortic stenosis. No aortic regurgitation is present. Pulmonic Valve The pulmonic valve is not well seen, but is grossly normal. There is no pulmonic valvular stenosis. Great Vessels The aortic root is normal size. Pericardium/Pleura There is no pericardial effusion. Interpretation Summary There is moderate concentric left ventricular hypertrophy. The left ventricle is hyperdynamic. The right ventricle is normal in size and function. The left atrium is mildly dilated. There is mild mitral regurgitation. There is mild tricuspid regurgitation. There is mild aortic sclerosis.; There is no pericardial effusion. MD Garcia *[place] 04/30/2019 10:57 AM
--- NOTE | 2019-04-30 13:25 | PN ---
Physical Exam: SUBJECTIVE: Patient seen and examined at the bedside. Stated he was feeling well , denied fever, chills, cp, sob, abd pain, n/v/c/d, headaches, dizziness, lightheadedness, dysuria. OBJECTIVE: Vital Signs Period Temp Pulse Resp BP Sys/Brown Pulse Ox Last 24 Hr 97.5 F-98.7 F 77-94 20-22 130-158/76-90 95-98 GENERAL: The patient is awake, alert, and oriented to self and "[facility]". HEAD: Normal with no signs of trauma. EYES: PERRL, extraocular movements intact, conjunctiva clear. ENT: Oropharynx clear without exudates, moist mucous membranes. LUNGS: Breath sounds equal, clear to auscultation bilaterally, no wheezes, no crackles, no accessory muscle use. HEART: Normal rate and irregular rhythm, S1, S2 without murmur. ABDOMEN: Soft, nontender, nondistended, normoactive bowel sounds, no guarding, no rebound, no masses. EXTREMITIES: 1+ pulses, warm, well-perfused, no edema. NEUROLOGICAL: Cranial nerves II through XII grossly intact. 4/5 muscle strength bilaterally on the lower extremities. PSYCH: Confused. Pleasant demeanor. SKIN: Warm, dry, normal turgor. Laboratory Results - last 24 hr 04/29/19 04/29/19 04/30/19 12:00 21:35 04:58 WBC RBC Hgb Hct MCV MCH MCHC RDW Plt Count MPV Absolute Neuts (auto) Neutrophils % Lymphocytes % Monocytes % Eosinophils % Basophils % Nucleated RBC % Sodium Potassium Chloride Carbon Dioxide Anion Gap BUN Creatinine Est GFR (CKD-EPI)AfAm Est GFR (CKD-EPI)NonAf POC Glucometer 121 81 Random Glucose Calcium Phosphorus Magnesium Troponin I < 0.02 Triglycerides Cholesterol Total LDL Cholesterol HDL Cholesterol 04/30/19 04/30/19 06:08 06:08 WBC 4.1 RBC 4.22 Hgb 14.3 Hct 41.8 MCV 99.3 H MCH 33.9 H MCHC 34.2 RDW 13.7 Plt Count 220 MPV 9.1 Absolute Neuts (auto) 2.1 Neutrophils % 50.0 Lymphocytes % 36.7 D Monocytes % 10.2 Eosinophils % 2.6 D Basophils % 0.5 Nucleated RBC % 0 Sodium 140 Potassium 4.2 Chloride 107 Carbon Dioxide 29 Anion Gap 5 L BUN 9.2 Creatinine 0.9 Est GFR (CKD-EPI)AfAm 95.15 Est GFR (CKD-EPI)NonAf 82.09 POC Glucometer Random Glucose 87 Calcium 9.3 Phosphorus 3.3 Magnesium 1.8 Troponin I Triglycerides 76 Cholesterol 210 H Total LDL Cholesterol 131 H HDL Cholesterol 56 Active Medications Generic Name Dose Route Start Last Admin Trade Name Freq PRN Reason Stop Dose Admin Aspirin 81 mg 04/30/19 10:00 04/30/19 10:56 Asa - PO 81 mg DAILY [facility] Administration Atorvastatin Calcium 40 mg 04/29/19 22:00 04/29/19 22:36 Lipitor - PO 40 mg HS [facility] Administration Diltiazem HCl 120 mg 04/30/19 10:00 04/30/19 10:56 Cardizem Cd - PO 120 mg DAILY [facility] Administration Enoxaparin Sodium 40 mg 04/29/19 10:00 04/30/19 10:56 Lovenox - SQ 40 mg DAILY [facility] Administration Multivitamins/Minerals/Vitamin C 1 tab 04/30/19 10:00 04/30/19 10:56 Tab-A-Vit - PO 1 tab DAILY [facility] Administration Prednisone 40 mg 04/30/19 10:00 04/30/19 10:56 Deltasone - PO 40 mg DAILY [facility] Administration Thiamine HCl 100 mg 04/29/19 22:00 04/29/19 22:36 Vitamin B1 - PO 100 mg HS [facility] Administration Lumbar CT Findings L2-L3 Circumferential disc bulge extending beyond the contour of the adjacent endplates in all directions including the neural foramina. The disc mildly deforms the ventral aspect of the thecal sac. Hypertrophic facet joint arthropathy with thickened ligamentum flavum. Central spinal canal stenosis. L4-L5. Moderate hypertrophic facet joint arthropathy. No evidence of central spinal canal stenosis. Posterior annular bulge mildly deforming the ventral aspect of the thecal sac. Approximately 3 mm anterior spondylolisthesis of L4 on L5. L5-S1. Hypertrophic facet joint arthropathy. Loss of intervertebral disc space height posteriorly. Broad-based, lateralizing the right side disc protrusion contacting the right S1 nerve. Clinical correlate with history of radiculopathy in the distribution of the right S1 nerve. No evidence of central spinal canal stenosis. No evidence of central spinal canal stenosis at the remaining levels. Facet joint arthropathy ASSESSMENT/PLAN: Adams Bird is a 79 male with a past medical history of Afib (not on AC), HTN , PSA (alcohol and cocaine) admitted for inability to ambulate. AMS and difficulty ambulating - Patient reported to not be at baseline mental status, only oriented to self and hospital. - Head CT noting moderate atrophy, lacunar infarct of left basal ganglia and left anterior periventricular white matter - X-rays negative of hip and knee - CT lumbar spine as above - fall precautions - PT eval, walked 5 ft with moderate assistance - Social work consulted - Neurology, Dr. Fair consulted, recs appreciated EKG changes, R/O ACS - T wave inversions present but patient complains of no chest pain - troponins 0.02x3 - K+ initially 5.8, likely due to hemolysis, repeat of 4.3 - cardiology consulted, recs appreciated Disc protrusion contacting the S1 nerve - prednisone 40mg on 12 day taper by 10mg every 3 days - will require neurosurgery outpatient follow up HTN - Patient currently normotensive - restart cardizem 120mg Afib - Not on home a/c, CHADSVASC 3 - Continue cardizem - cardiology consulted, recs appreciated - will continued aspirin as patient with history of falls and not good candidate for AC - Continous cardiac monitoring - echo noting EF 65-70%, moderate concentric LVH, hyperdynamic LV, mildly dilated left atrium, mild mitral and tricuspid regurg, mild aortic sclerosis Hx of lacunar infarct - start aspirin and statin - elevated LDL - will require liver enzyme check in 2-4 weeks Prostatic enlargement with thickened urinary bladder - will require urology f/u Bibasilar atelectasis as noted on CT scan - patient currently asymptomatic - PT eval - incentive spirometry - will need outpatient PCP f/u DVT PPX - Lovenox 40 SQ Daily FEN - no standing fluids, encourage oral hydration - continue to monitor electrolytes and replete as necessary - sodium controlled diet Dispo - can be transferred to med-surg Visit type - Emergency Visit Emergency Visit: Yes ED Registration Date: 04/29/19 Care time: The patient presented to the Emergency Department on the above date and was hospitalized for further evaluation of their emergent condition. - New Patient This patient is new to me today: No - Critical Care Critical Care patient: No
[2019-04-30] MEDS: ATORVASTATIN CA 40 MG TABLET (FP) PO SCH (21:34)
[2019-04-30] MEDS: THIAMINE HCL 100 MG TABLET (FP) PO SCH (21:34)
[2019-05-01] MEDS: MULTIVITAMINS (DAILY MVI) TABLET (FP) PO SCH (10:36)
[2019-05-01] MEDS: predniSONE 20 MG TABLET (UD) PO SCH (10:36)
[2019-05-01] MEDS: ENOXAPARIN NA (PORCINE) 40 MG/0.4 ML DISP.SYRIN SQ SCH (10:37)
[2019-05-01] MEDS: ASPIRIN 81 MG CHEWABLE TABLETS PO SCH (10:37)
[2019-05-01 16:48] VITALS: BMI 23.0
[2019-05-01] MEDS: THIAMINE HCL 100 MG TABLET (FP) PO SCH (21:35)
[2019-05-01] MEDS: ATORVASTATIN CA 40 MG TABLET (FP) PO SCH (21:35)
--- NOTE | 2019-05-01 21:35 | PN ---
Progress Note (short form) - Note Progress Note: Patient feels comfortable with no acute distress. Vital Signs Temperature 97.7 F 05/01/19 21:32 Pulse Rate 73 05/01/19 21:32 Respiratory Rate 18 05/01/19 21:32 Blood Pressure 152/73 05/01/19 21:32 O2 Sat by Pulse Oximetry (%) 98 05/01/19 21:00 GENERAL: The patient is awake, alert, oriented, in no acute distress. HEAD: Normal with no signs of trauma. EYES: PERRL, extraocular movements intact, sclera anicteric, conjunctiva clear. ENT: Ears normal, oropharynx clear without exudates, moist mucous membranes. NECK: Trachea midline, full range of motion, supple. LUNGS: Breath sounds equal, clear to auscultation bilaterally, no wheezes, no crackles, no accessory muscle use. HEART: irregularly-irregular , S1, S2 without murmur, rub or gallop. ABDOMEN: Soft, NT,ND, normoactive bowel sounds, no guarding, no rebound, no hepatosplenomegaly, no masses. EXTREMITIES: 2+ pulses, warm, well-perfused, no edema. NEUROLOGICAL: Cranial nerves II through XII grossly intact. Normal speech, gait not observed. PSYCH: Normal mood, normal affect. SKIN: Warm, dry, normal turgor, no rashes or lesions noted CBCD WBC 4.1 K/mm3 (4.0-10.0) 04/30/19 06:08 RBC 4.22 M/mm3 (4.00-5.60) 04/30/19 06:08 Hgb 14.3 GM/dL (11.7-16.9) 04/30/19 06:08 Hct 41.8 % (35.4-49) 04/30/19 06:08 MCV 99.3 fl (80-96) H 04/30/19 06:08 MCHC 34.2 g/dl (32.0-35.9) 04/30/19 06:08 RDW 13.7 % (11.9-15.9) 04/30/19 06:08 Plt Count 220 K/MM3 (134-434) 04/30/19 06:08 MPV 9.1 fl (7.5-11.1) 04/30/19 06:08 CMP Sodium 140 mmol/L (136-145) 04/30/19 06:08 Potassium 4.2 mmol/L (3.5-5.1) 04/30/19 06:08 Chloride 107 mmol/L (98-107) 04/30/19 06:08 Carbon Dioxide 29 mmol/L (21-32) 04/30/19 06:08 Anion Gap 5 MMOL/L (8-16) L 04/30/19 06:08 BUN 9.2 mg/dL (7-18) 04/30/19 06:08 Creatinine 0.9 mg/dL (0.55-1.3) 04/30/19 06:08 Random Glucose 87 mg/dL (74-106) 04/30/19 06:08 Calcium 9.3 mg/dL (8.5-10.1) 04/30/19 06:08 Total Bilirubin 0.5 mg/dL (0.2-1) 04/29/19 02:00 AST 52 U/L (15-37) H 04/29/19 02:00 ALT 24 U/L (13-61) 04/29/19 02:00 Alkaline Phosphatase 96 U/L (45-117) 04/29/19 02:00 Total Protein 7.8 g/dl (6.4-8.2) 04/29/19 02:00 Albumin 3.5 g/dl (3.4-5.0) 04/29/19 02:00 CARDIAC ENZYMES Creatine Kinase 120 U/L (26-308) 04/29/19 02:00 Troponin I < 0.02 ng/ml (0.00-0.05) 04/29/19 12:00 Current Medications Generic Name Dose Route Start Last Admin Trade Name Freq PRN Reason Stop Dose Admin Aspirin 81 mg 05/01/19 10:00 05/01/19 10:37 Asa - PO 81 mg DAILY [facility] Administration Atorvastatin Calcium 40 mg 05/01/19 22:00 Lipitor - PO HS [facility] Diltiazem HCl 120 mg 05/01/19 10:00 05/01/19 10:36 Cardizem Cd - PO 120 mg DAILY [facility] Administration Enoxaparin Sodium 40 mg 05/01/19 10:00 05/01/19 10:37 Lovenox - SQ 40 mg DAILY [facility] Administration Multivitamins/Minerals/Vitamin C 1 tab 05/01/19 10:00 05/01/19 10:36 Tab-A-Vit - PO 1 tab DAILY [facility] Administration Prednisone 40 mg 05/01/19 10:00 05/01/19 10:36 Deltasone - PO 40 mg DAILY [facility] Administration Thiamine HCl 100 mg 05/01/19 22:00 Vitamin B1 - PO HS [facility] Home Medications Medication Instructions Recorded Diltiazem Cd [Cardizem Cd -] 120 mg PO DAILY #30 cap.cd.24h 12/14/[address] noting moderate atrophy, lacunar infarct of left basal ganglia and left anterior periventricular white matter X-rays negative of hip and knee ASSESSMENT AND PLAN: Patient is a 79yom with a Pmhx of Afib (not on AC), HTN, PSA (alcohol and cocaine) admitted for inability to ambulate. # AMS : unknown baseline #Difficulty ambulating : improving ,on Steroid for short term since impingment Lumbar CT: the right side disc contacting the right S1 nerve. fall precautions Discussed with Neurology, Dr. Fair , will get ct of L-spine to r/o stenosis # EKG changes; T wave inversions , troponins 0.02x3, cardiology consulted, recs appreciated #HTN: restart cardizem 120mg #Afib: Not on home a/c, CHADSVASC 3, on cardizem #Hx of lacunar infarct: continue aspirin and statin #Prostatic enlargement with thickened urinary bladder: urology f/u # Bibasilar atelectasis as noted on CT scan, incentive spirometry, asymptomatic , PT eval DVT PPX: Lovenox 40 SQ Daily dc planning to rehab in am Visit type - Emergency Visit Emergency Visit: Yes ED Registration Date: 04/29/19 Care time: The patient presented to the Emergency Department on the above date and was hospitalized for further evaluation of their emergent condition. - New Patient This patient is new to me today: No - Critical Care Critical Care patient: No - Discharge Referral Referred to [facility] Med P.C.: No
[2019-05-02] MEDS: predniSONE 20 MG TABLET (UD) PO SCH (09:36)
[2019-05-02] MEDS: MULTIVITAMINS (DAILY MVI) TABLET (FP) PO SCH (09:37)
[2019-05-02] MEDS: ASPIRIN 81 MG CHEWABLE TABLETS PO SCH (09:37)
[2019-05-02] MEDS: ENOXAPARIN NA (PORCINE) 40 MG/0.4 ML DISP.SYRIN SQ SCH (09:37)
--- NOTE | 2019-05-02 10:54 | PN ---
Progress Note (short form) - Note Progress Note: 79 year old male history of atrial fibrillation, htn , polysubstance abuse ( alcohol and cocaine). Vignesh lives at home and presented to hospital for difficulty walking. He has not been physical active. He has episode of fecal incontinence, he denies any tingling or numbness or lower extrmeity weakness . Vignesh had ct head and it was wnl. Vignesh has ct of L spine and there is severe djd. He has no new focal neurological symptoms NEUROLOGICAL EXAMINATOIN Alert oriented x 3, speech is normal, neck is supple EOMI, pupils reactive no facial asymmetry moving all extrmeity lower extremity there is good strength of hip flexor, extensor , knee flexion and extensor , ankle flexion and extension sensation is normal reflex are grade 1 generalized there is severe quadricep weakness , ftn is normal, hts is midly dysmetric ct head i sunremarkable Assessment/Plan 79 year old male history of atrial fibrillation, htn , polysubstance abuse ( alcohol and cocaine), presnted with chronic slowly difficulty with gait, most likley cerebellar , alcohol related and severe deconditioning Plan: physical therapy CT fo L spine showed severe djd, no further work up or treatment at this time folic acid, thiamine and mvi waiting for short term rehab At this time, there is no suspician for cord compression,Mri of Spine is not needed Thanking you so much Moe Fair MD
--- NOTE | 2019-05-02 15:35 | PN ---
Physical Exam: SUBJECTIVE: Patient seen and examined. He reports feeling better than yesterday. He denies chest pain, palpitations, shortness of breath, or weakness. OBJECTIVE: Vital Signs Period Temp Pulse Resp BP Sys/Brown Pulse Ox Last 24 Hr 97.7 F-99 F 65-86 18-19 126-156/66-99 98-99 GENERAL: The patient is awake, alert, and oriented x2, in no acute distress. HEAD: Normal with no signs of trauma. EYES: PERRL, extraocular movements intact, conjunctiva clear. ENT: Ears normal, nares patent, moist mucous membranes. NECK: Trachea midline, full range of motion. LUNGS: Breath sounds equal, clear to auscultation bilaterally, no wheezes. HEART: Regular rate and rhythm, no murmur ABDOMEN: Soft, nontender, nondistended, normoactive bowel sounds. EXTREMITIES: Warm, well-perfused, no edema. 5/5 strength b/l hips, knees, and feet. NEUROLOGICAL: Normal speech, gait not observed. PSYCH: Normal mood, normal affect. SKIN: Warm, dry, normal turgor. Laboratory Results - last 24 hr 05/01/19 05/02/19 22:13 06:59 POC Glucometer 162 96 Active Medications Generic Name Dose Route Start Last Admin Trade Name Freq PRN Reason Stop Dose Admin Aspirin 81 mg 05/01/19 10:00 05/02/19 09:37 Asa - PO 81 mg DAILY [facility] Administration Atorvastatin Calcium 40 mg 05/01/19 22:00 05/01/19 21:35 Lipitor - PO 40 mg HS [facility] Administration Diltiazem HCl 120 mg 05/01/19 10:00 05/02/19 09:37 Cardizem Cd - PO 120 mg DAILY [facility] Administration Enoxaparin Sodium 40 mg 05/01/19 10:00 05/02/19 09:37 Lovenox - SQ 40 mg DAILY [facility] Administration Multivitamins/Minerals/Vitamin C 1 tab 05/01/19 10:05/02/19 09:37 Tab-A-Vit - PO 1 tab DAILY [facility] Administration Prednisone 40 mg 05/01/19 10:00 05/02/19 09:36 Deltasone - PO 40 mg DAILY [facility] Administration Thiamine HCl 100 mg 05/01/19 22:00 05/01/19 21:35 Vitamin B1 - PO 100 mg HS [facility] Administration ASSESSMENT/PLAN: Pt is a 79 y/o male with a-fib (not currently on AC), HTN, and cocaine and alcohol use disorders who is admitted for inability to ambulate. #AMS -A/O x2, unsure of baseline -folic acid, thiamine, and MV -CT left basal ganglia and periventricular white matter lacunar infarct, nothing acute -ASA 81mg -atorvastatin 40mg -neurology following #deconditioning -hip and knee x-rays negative -PT -SNF placement #lumbar DJD -CT L-spine severe DJD -continue prednisone 40mg, last day 05/04/19 no taper #paroxysmal a-fib -CHADSVASC 3, not on home AC- fall risk -continue cardizem -continue ASA 81mg -echo noting EF 65-70%, moderate concentric LVH, hyperdynamic LV, mildly dilated left atrium, mild mitral and tricuspid regurg, mild aortic sclerosis -cards following #EKG changes -r/o ACS -trop negative x3 and asymptomatic -cards following #HTN -well-controlled DVT Ppx Lovenox 40 SQ Daily FEN PO fluids monitor labs sodium-controlled diet Dispo med/surg waiting SNF placement social work placed call out to sister and waiting on callback because pt is unable to make decisions for himself given AMS Visit type - Emergency Visit Emergency Visit: Yes ED Registration Date: 04/29/19 Care time: The patient presented to the Emergency Department on the above date and was hospitalized for further evaluation of their emergent condition. - New Patient This patient is new to me today: Yes Date on this admission: 05/02/19 - Critical Care Critical Care patient: No - Discharge Referral Referred to [facility] Med P.C.: No ATTENDING PHYSICIAN STATEMENT I saw and evaluated the patient. I reviewed the resident's note and discussed the case with the resident. I agree with the resident's findings and plan as documented. SUBJECTIVE: OBJECTIVE: ASSESSMENT AND PLAN:
--- NOTE | 2019-05-02 19:05 | PN ---
Teaching Attending Note Name of Resident: Seda Ren ATTENDING PHYSICIAN STATEMENT I saw and evaluated the patient. I reviewed the resident's note and discussed the case with the resident. I agree with the resident's findings and plan as documented. SUBJECTIVE: Patient is comfortable with no acute distress. Vital Signs Temperature 98.2 F 05/02/19 14:45 Pulse Rate 76 05/02/19 14:45 Respiratory Rate 18 05/02/19 14:45 Blood Pressure 138/80 05/02/19 14:45 O2 Sat by Pulse Oximetry (%) 99 05/02/19 09:00 GENERAL: The patient is awake, alert, unable to answer to questions , in no acute distress. HEAD: Normal with no signs of trauma. EYES: PERRL, extraocular movements intact, sclera anicteric, conjunctiva clear. ENT: Ears normal, oropharynx clear without exudates, moist mucous membranes. NECK: Trachea midline, full range of motion, supple. LUNGS: Breath sounds equal, clear to auscultation bilaterally, no wheezes, no crackles, no accessory muscle use. HEART: irregularly-irregular , S1, S2 +, no murmur, rub or gallop. ABDOMEN: Soft, NT,ND, normoactive bowel sounds, no guarding, no rebound, no hepatosplenomegaly, no masses. EXTREMITIES: 2+ pulses, warm, well-perfused, no edema. NEUROLOGICAL: Cranial nerves II through XII grossly intact. Normal speech, gait not observed. SKIN: Warm, dry, normal turgor, no rashes or lesions noted CBCD WBC 4.1 K/mm3 (4.0-10.0) 04/30/19 06:08 RBC 4.22 M/mm3 (4.00-5.60) 04/30/19 06:08 Hgb 14.3 GM/dL (11.7-16.9) 04/30/19 06:08 Hct 41.8 % (35.4-49) 04/30/19 06:08 MCV 99.3 fl (80-96) H 04/30/19 06:08 MCHC 34.2 g/dl (32.0-35.9) 04/30/19 06:08 RDW 13.7 % (11.9-15.9) 04/30/19 06:08 Plt Count 220 K/MM3 (134-434) 04/30/19 06:08 MPV 9.1 fl (7.5-11.1) 04/30/19 06:08 CMP Sodium 140 mmol/L (136-145) 04/30/19 06:08 Potassium 4.2 mmol/L (3.5-5.1) 04/30/19 06:08 Chloride 107 mmol/L (98-107) 04/30/19 06:08 Carbon Dioxide 29 mmol/L (21-32) 04/30/19 06:08 Anion Gap 5 MMOL/L (8-16) L 04/30/19 06:08 BUN 9.2 mg/dL (7-18) 04/30/19 06:08 Creatinine 0.9 mg/dL (0.55-1.3) 04/30/19 06:08 Random Glucose 87 mg/dL (74-106) 04/30/19 06:08 Calcium 9.3 mg/dL (8.5-10.1) 04/30/19 06:08 Total Bilirubin 0.5 mg/dL (0.2-1) 04/29/19 02:00 AST 52 U/L (15-37) H 04/29/19 02:00 ALT 24 U/L (13-61) 04/29/19 02:00 Alkaline Phosphatase 96 U/L (45-117) 04/29/19 02:00 Total Protein 7.8 g/dl (6.4-8.2) 04/29/19 02:00 Albumin 3.5 g/dl (3.4-5.0) 04/29/19 02:00 CARDIAC ENZYMES Creatine Kinase 120 U/L (26-308) 04/29/19 02:00 Troponin I < 0.02 ng/ml (0.00-0.05) 04/29/19 12:00 Current Medications Generic Name Dose Route Start Last Admin Trade Name Freq PRN Reason Stop Dose Admin Aspirin 81 mg 05/01/19 10:00 05/02/19 09:37 Asa - PO 81 mg DAILY [facility] Administration Atorvastatin Calcium 40 mg 05/01/19 22:00 05/01/19 21:35 Lipitor - PO 40 mg HS [facility] Administration Diltiazem HCl 120 mg 05/01/19 10:00 05/02/19 09:37 Cardizem Cd - PO 120 mg DAILY [facility] Administration Enoxaparin Sodium 40 mg 05/01/19 10:00 05/02/19 09:37 Lovenox - SQ 40 mg DAILY [facility] Administration Multivitamins/Minerals/Vitamin C 1 tab 05/01/19 10:00 05/02/19 09:37 Tab-A-Vit - PO 1 tab DAILY [facility] Administration Prednisone 40 mg 05/01/19 10:00 05/02/19 09:36 Deltasone - PO 40 mg DAILY [facility] Administration Thiamine HCl 100 mg 05/01/19 22:00 05/01/19 21:35 Vitamin B1 - PO 100 mg HS [facility] Administration Home Medications Medication Instructions Recorded Diltiazem Cd [Cardizem Cd -] 120 mg PO DAILY #30 cap.cd.24h 12/14/[address] noting moderate atrophy, lacunar infarct of left basal ganglia and left anterior periventricular white matter X-rays negative of hip and knee ASSESSMENT AND PLAN: Patient is a 79yom with a Pmhx of Afib (not on AC), HTN, PSA (alcohol and cocaine) admitted for inability to ambulate. # AMS : unknown baseline , no new changes #Difficulty ambulating : improving ,on Steroid for short term since impingment Lumbar CT: the right side disc contacting the right S1 nerve. given steroid for 5 days , continue 2 more days, fall precautions. Discussed with Neurology, Dr. Fair . # EKG changes; T wave inversions ,troponins 0.02x3, cardiology consulted, recs appreciated #HTN: restart cardizem 120mg #Afib: Not on home a/c, CHADSVASC 3, on cardizem #Hx of lacunar infarct: continue aspirin and statin #Prostatic enlargement with thickened urinary bladder: urology f/u # Bibasilar atelectasis as noted on CT scan, incentive spirometry, asymptomatic , PT eval DVT PPX: Lovenox 40 SQ Daily dc to rehab in am, waiting for bed.
[2019-05-02] MEDS: ATORVASTATIN CA 40 MG TABLET (FP) PO SCH (22:11)
[2019-05-02] MEDS: THIAMINE HCL 100 MG TABLET (FP) PO SCH (22:11)
--- NOTE | 2019-05-03 08:25 | PN ---
Teaching Attending Note Name of Resident: Yash Muller ATTENDING PHYSICIAN STATEMENT I saw and evaluated the patient. I reviewed the resident's note and discussed the case with the resident. I agree with the resident's findings and plan as documented. SUBJECTIVE: Patient is comfortable with no acute distress. OBJECTIVE: Vital Signs Temperature 98.0 F 05/03/19 06:00 Pulse Rate 55 L 05/03/19 06:00 Respiratory Rate 20 05/03/19 06:00 Blood Pressure 147/73 05/03/19 06:00 O2 Sat by Pulse Oximetry (%) 99 05/02/19 09:00 GENERAL: The patient is awake, alert, unable to answer to questions , in no acute distress. HEAD: Normal with no signs of trauma. EYES: PERRL, extraocular movements intact, sclera anicteric, conjunctiva clear. ENT: Ears normal, oropharynx clear without exudates, moist mucous membranes. NECK: Trachea midline, full range of motion, supple. LUNGS: Breath sounds equal, clear to auscultation bilaterally, no wheezes, no crackles, no accessory muscle use. HEART: irregularly-irregular , S1, S2 +, no murmur, rub or gallop. ABDOMEN: Soft, NT,ND, normoactive bowel sounds, no guarding, no rebound, no hepatosplenomegaly, no masses. EXTREMITIES: 2+ pulses, warm, well-perfused, no edema. NEUROLOGICAL: Cranial nerves II through XII grossly intact. Normal speech, gait not observed. SKIN: Warm, dry, normal turgor, no rashes or lesions noted CBCD WBC 4.1 K/mm3 (4.0-10.0) 04/30/19 06:08 RBC 4.22 M/mm3 (4.00-5.60) 04/30/19 06:08 Hgb 14.3 GM/dL (11.7-16.9) 04/30/19 06:08 Hct 41.8 % (35.4-49) 04/30/19 06:08 MCV 99.3 fl (80-96) H 04/30/19 06:08 MCHC 34.2 g/dl (32.0-35.9) 04/30/19 06:08 RDW 13.7 % (11.9-15.9) 04/30/19 06:08 Plt Count 220 K/MM3 (134-434) 04/30/19 06:08 MPV 9.1 fl (7.5-11.1) 04/30/19 06:08 CMP Sodium 140 mmol/L (136-145) 04/30/19 06:08 Potassium 4.2 mmol/L (3.5-5.1) 04/30/19 06:08 Chloride 107 mmol/L (98-107) 04/30/19 06:08 Carbon Dioxide 29 mmol/L (21-32) 04/30/19 06:08 Anion Gap 5 MMOL/L (8-16) L 04/30/19 06:08 BUN 9.2 mg/dL (7-18) 04/30/19 06:08 Creatinine 0.9 mg/dL (0.55-1.3) 04/30/19 06:08 Random Glucose 87 mg/dL (74-106) 04/30/19 06:08 Calcium 9.3 mg/dL (8.5-10.1) 04/30/19 06:08 Total Bilirubin 0.5 mg/dL (0.2-1) 04/29/19 02:00 AST 52 U/L (15-37) H 04/29/19 02:00 ALT 24 U/L (13-61) 04/29/19 02:00 Alkaline Phosphatase 96 U/L (45-117) 04/29/19 02:00 Total Protein 7.8 g/dl (6.4-8.2) 04/29/19 02:00 Albumin 3.5 g/dl (3.4-5.0) 04/29/19 02:00 CARDIAC ENZYMES Creatine Kinase 120 U/L (26-308) 04/29/19 02:00 Troponin I < 0.02 ng/ml (0.00-0.05) 04/29/19 12:00 Current Medications Generic Name Dose Route Start Last Admin Trade Name Freq PRN Reason Stop Dose Admin Aspirin 81 mg 05/01/19 10:00 05/02/19 09:37 Asa - PO 81 mg DAILY CHIDI Administration Atorvastatin Calcium 40 mg 05/01/19 22:00 05/02/19 22:11 Lipitor - PO 40 mg HS CHIDI Administration Diltiazem HCl 120 mg 05/01/19 10:00 05/02/19 09:37 Cardizem Cd - PO 120 mg DAILY CHIDI Administration Enoxaparin Sodium 40 mg 05/01/19 10:00 05/02/19 09:37 Lovenox - SQ 40 mg DAILY CHIDI Administration Multivitamins/Minerals/Vitamin C 1 tab 05/01/19 10:00 05/02/19 09:37 Tab-A-Vit - PO 1 tab DAILY CHIDI Administration Prednisone 40 mg 05/03/19 10:00 Deltasone - PO DAILY CHIDI Thiamine HCl 100 mg 05/01/19 22:00 05/02/19 22:11 Vitamin B1 - PO 100 mg HS CHIDI Administration Home Medications Medication Instructions Recorded Diltiazem Cd [Cardizem Cd -] 120 mg PO DAILY #30 cap.cd.24h 12/14/[address] noting moderate atrophy, lacunar infarct of left basal ganglia and left anterior periventricular white matter X-rays negative of hip and knee ASSESSMENT AND PLAN: Patient is a 79yom with a Pmhx of Afib (not on AC), HTN, PSA (alcohol and cocaine) admitted for inability to ambulate. # AMS : unknown baseline , no new changes #Difficulty ambulating : improving ,on Steroid for short term since impingment Lumbar CT: the right side disc contacting the right S1 nerve. given steroid will continue for 1 more day, fall precautions. Discussed with Neurology, Dr. Fair . # EKG changes; T wave inversions ,troponins 0.02x3, cardiology consulted, recs appreciated #HTN: restart cardizem 120mg #Afib: Not on home a/c, CHADSVASC 3, on cardizem #Hx of lacunar infarct: continue aspirin and statin #Prostatic enlargement with thickened urinary bladder: urology f/u # Bibasilar atelectasis as noted on CT scan, incentive spirometry, asymptomatic , PT eval DVT PPX: Lovenox 40 SQ Daily dc to rehab
[2019-05-03] MEDS ORDERED: predniSONE 10 MG TABLET (UD) PO SCH (10:00)
[2019-05-03] MEDS ORDERED: predniSONE 20 MG TABLET (UD) PO SCH (10:00)
[2019-05-03] MEDS: ENOXAPARIN NA (PORCINE) 40 MG/0.4 ML DISP.SYRIN SQ SCH (10:19)
[2019-05-03] MEDS: MULTIVITAMINS (DAILY MVI) TABLET (FP) PO SCH (10:19)
[2019-05-03] MEDS: ASPIRIN 81 MG CHEWABLE TABLETS PO SCH (10:19)
--- NOTE | 2019-05-03 13:46 | DS ---
Physical Exam: SUBJECTIVE: Patient seen and examined at the bedside. Stated he was feeling better. With less confusion today. Denied any acute complaints of cp, sob, abd pain, n/v/c/d, fever, chills, headaches, dizziness, lightheadedness, numbness, tingling. OBJECTIVE: Vital Signs Period Temp Pulse Resp BP Sys/Brown Pulse Ox Last 24 Hr 97.5 F-98.2 F 55-78 18-20 119-165/68-98 96 PHYSICAL EXAM GENERAL: The patient is awake, alert, and oriented to self, [facility]", and "2020 ". HEAD: Normal with no signs of trauma. EYES: PERRL, extraocular movements intact, conjunctiva clear. ENT: Oropharynx clear without exudates, moist mucous membranes. LUNGS: Breath sounds equal, clear to auscultation bilaterally, no wheezes, no crackles, no accessory muscle use. HEART: Normal rate and irregular rhythm, S1, S2 without murmur. ABDOMEN: Soft, nontender, nondistended, normoactive bowel sounds, no guarding, no rebound, no masses. EXTREMITIES: 1+ pulses, warm, well-perfused, no edema. NEUROLOGICAL: Cranial nerves II through XII grossly intact. 4/5 muscle strength bilaterally on the lower extremities. PSYCH: Pleasant demeanor. Normal mood and affect. SKIN: Warm, dry, normal turgor. LABS Laboratory Results - last 24 hr 05/02/19 05/03/19 17:10 13:10 POC Glucometer 157 117 HOSPITAL COURSE: Adams Bird is a 79 male with a past medical history of Afib (not on AC), HTN , PSA (alcohol and cocaine) admitted for inability to ambulate. Patient had a head CT which noted which noted moderate atrophy, lacunar infarct of left basal ganglia and left anterior periventricular white matter. Patient was started on aspirin and statin for these findings and advised to have liver enzyme check in 2-4 weeks. X-rays of the hip and knee were negative for acute fracture. CT lumbar spine was performed which noted findings as below but of note had disc protrusions contacting the nerves. Was started on prednisone 40mg and will complete course on the day after discharge and advised to follow up with neurosurgery and neurology outpatient. PT evaluated the patient and recommended the patient go to a SNF in order to improve gait and strength. Patient was noted to have T wave inversions and inititally had K of 5.8 which improved with medical management. Patient did not have chest pain and troponins were negative x3. Patient was seen by cardiology and advised to have echo and follow up outpatient. Echo noted EF 65-70%, moderate concentric LVH, hyperdynamic LV, mildly dilated left atrium, mild mitral and tricuspid regurg, mild aortic sclerosis. Patient with history of afib not on AC with CHADSVASC 3. Was started on aspirin due to high risk of falls and to follow up with cardiology. To continue on home cardizem. Incidentally patient was noted on CT to have Prostatic enlargement with thickened urinary bladder which he was recommended to follow up with urology outpatient. Was also noted to have bibasilar atelectasis and was recommended to follow up with his PCP outpatient and encouraged for incentive spirometry. Patient was started on aspirin, atorvastatin, thiamine, MVI, and prednisone 40mg for one additional day and advised to follow up with his PCP, cardiology, neurology, neurosurgery, urology. Patient was accepted to SNF and was discharged in stable medical condition. Lumbar CT Findings L2-L3 Circumferential disc bulge extending beyond the contour of the adjacent endplates in all directions including the neural foramina. The disc mildly deforms the ventral aspect of the thecal sac. Hypertrophic facet joint arthropathy with thickened ligamentum flavum. Central spinal canal stenosis. L4-L5. Moderate hypertrophic facet joint arthropathy. No evidence of central spinal canal stenosis. Posterior annular bulge mildly deforming the ventral aspect of the thecal sac. Approximately 3 mm anterior spondylolisthesis of L4 on L5. L5-S1. Hypertrophic facet joint arthropathy. Loss of intervertebral disc space height posteriorly. Broad-based, lateralizing the right side disc protrusion contacting the right S1 nerve. Clinical correlate with history of radiculopathy in the distribution of the right S1 nerve. No evidence of central spinal canal stenosis. No evidence of central spinal canal stenosis at the remaining levels. Facet joint arthropathy Date of Admission:04/29/19 Date of Discharge: 05/03/19 Minutes to complete discharge: 35 Discharge Summary Problems reviewed: Yes Reason For Visit: ATRIAL FIBRILLATION Current Active Problems T wave inversion in electrocardiogram (Chronic) Condition: Stable - Instructions Diet, Activity, Other Instructions: You were admitted after you had a fall and were found to have weakness. You worked with physical therapy who recommended that you go to a facility in order to build your strength. You had a CT scan of your head which showed chronic strokes for which you were started on medications for this purpose. You had x- rays performed of your hip and knees which did not show any fracture. You were seen by a neurologist who recommended that you follow with neurology outpatient. You had some changes on your EKG (electrical analysis of the heart) for which you are recommended to follow up with a screen printer helper. You had an echocardiogram (ultrasound of the heart) which showed enlargement of the heart and valve abnormalities for which you are recommended to follow up with a screen printer helper. You had a scan of your lumbar spine which showed that you have disc herniations which are causing your nerves in your back to be compressed. You were started on medication to help with your compression and are recommended to follow up with a neurosurgeon in the outpatient clinic. You were found to have an thickened urinary bladder and enlargement of your prostate for which you are recommended to follow up with a urologist in the outpatient clinic. You were noted to have some deflating of your lungs on the CT scan you had for which you are recommended to follow up with your primary care doctor. MEDICATIONS START to take prednisone 40 mg for 1 more day. Your last dose will be on 05/04/19. START to take lipitor 40 mg daily. START to take aspirin 81 mg daily. START to Thiamine 100mg daily. START to take a multivitamin daily. Continue to take all of your home medications as prescribed. REFERRALS Please follow up with your primary care physician in 1 week to monitor your improvement. If you do not have a primary care physician you may follow up with the resident's clinic for which the information is provided. Please follow up with the neurologist, Dr. Fair, within 1 week. Please follow up with the screen printer helper, Dr. Garcia, within 1 week. Please follow up with the neurosurgeon, Dr. Anguiano, within 2 weeks. Please follow up with the urologist, Dr. Preet Duron, within 2 weeks. SPECIAL INSTRUCTIONS Please have liver enzyme testing in 2-4 weeks to determine if your Lipitor medication needs to be adjusted. Please follow the recommendation of the physical therapist in order to build your strength. You should be careful when you walk to avoid falls. Please do not use any alcohol to prevent any falls and to avoid further damage to your organs. If you have any symptoms of chest pain, shortness of breath, falls, fevers, increasing inability to walk, or any other general feelings of unwellness, please call 911 or go to your nearest emergency room. Referrals: [facility] [place] [facility] [Provider Group] - 1 Week Moe Fair MD [Staff Physician] - 1 Week Rhianna Garcia MD [Staff Physician] - 1 Week Alistair Anguiano MD [Staff Physician] - 2 Weeks Preet Duron MD [Staff Physician] - 2 Weeks Disposition: [facility] - Home Medications Comprehensive Discharge Medication List: Ambulatory Orders Diltiazem Cd [Cardizem Cd -] 120 mg PO DAILY #30 cap.cd.24h 12/14/15 Aspirin [ASA -] 81 mg PO DAILY tab.chew 05/03/19 Atorvastatin Ca [Lipitor] 40 mg PO HS tablet 05/03/19 Multivitamins [Multivit ([facility] Formulary)] 1 tab PO DAILY tab 05/03/19 Thiamine HCl [Vitamin B1 -] 100 mg PO HS tablet 05/03/19 predniSONE [Deltasone -] 40 mg PO DAILY tablet 05/03/19 This patient is new to me today: No Emergency Visit: Yes ED Registration Date: 04/29/19 Care time: The patient presented to the Emergency Department on the above date and was hospitalized for further evaluation of their emergent condition. Critical Care patient: No - Discharge Referral Referred to [facility] Med [facility] No
--- NOTE | 2019-05-03 14:10 | PN ---
Progress Note (short form) - Note Progress Note: 79 year old male history of atrial fibrillation, htn , polysubstance abuse ( alcohol and cocaine). Vignesh lives at home and presented to hospital for difficulty walking. He has not been physical active. He has episode of fecal incontinence, he denies any tingling or numbness or lower extrmeity weakness . Vignesh had ct head and it was wnl. Vignesh has ct of L spine and there is severe djd. Patient is feeling better, no new neurological symptoms NEUROLOGICAL EXAMINATOIN Alert oriented x 2, speech is normal, neck is supple EOMI, pupils reactive no facial asymmetry moving all extrmeity lower extremity there is good strength of hip flexor, extensor , knee flexion and extensor , ankle flexion and extension sensation is normal reflex are grade 1 generalized there is severe quadricep weakness , ftn is normal, hts is midly dysmetric ct head i sunremarkable Assessment/Plan 79 year old male history of atrial fibrillation, htn , polysubstance abuse ( alcohol and cocaine), presnted with chronic slowly difficulty with gait, most likley cerebellar , alcohol related and severe deconditioning Plan: physical therapy CT fo L spine showed severe djd, no further work up or treatment at this time folic acid, thiamine and mvi He is being discharged today At this time, there is no suspician for cord compression,Mri of Spine is not needed Thanking you so much Moe Fair MD
[2019-05-03 15:40] VITALS: BP 123/66; PULSE 62; TEMP 97.9
--- NOTE | 2019-05-03 16:17 | PN ---
Progress Note (short form) - Note Progress Note: s: no chest pain, palps, dizziness, dyspnea Current Medications Aspirin (Asa -) 81 mg PO DAILY [facility] Last Admin: 05/03/19 10:19 Dose: 81 mg Atorvastatin Calcium (Lipitor -) 40 mg PO HS [facility] Last Admin: 05/02/19 22:11 Dose: 40 mg Diltiazem HCl (Cardizem Cd -) 120 mg PO DAILY [facility] Last Admin: 05/03/19 10:19 Dose: 120 mg Enoxaparin Sodium (Lovenox -) 40 mg SQ DAILY [facility] Last Admin: 05/03/19 10:19 Dose: 40 mg Multivitamins/Minerals/Vitamin C (Tab-A-Vit -) 1 tab PO DAILY [facility] Last Admin: 05/03/19 10:19 Dose: 1 tab Prednisone (Deltasone -) 40 mg PO DAILY [facility] Last Admin: 05/03/19 10:18 Dose: 40 mg Thiamine HCl (Vitamin B1 -) 100 mg PO HS [facility] Last Admin: 05/02/19 22:11 Dose: 100 mg Vital Signs Period Temp Pulse Resp BP Sys/Brown Pulse Ox Last 24 Hr 97.5 F-98.0 F 55-78 20-20 119-165/66-98 96 Constitutional: Yes: No Distress, Calm Cardiovascular: Yes: Pulse Irregular Respiratory: Yes: CTA Bilaterally Gastrointestinal: Yes: Soft Edema: No Neurological: Yes: Alert, Oriented no jaundice, diaphoresis not agitated - ....Imaging EKG: Image Reviewed Assessment/Plan EKG: afib, artifact, PVC, TWI V5-6 CXR: no acute process echo 04/2019 mod conc LVH, hyperdynamic LV, mildly dilated LA, mild MR, mild TR abnormal EKG: - no signs ACS, however poor historian - EKG with significant artifact as well - trop neg x 3 - echo with LVH, otherwise unremarkable, no further cardiac workup at this point alt mental status, gait instability: - manage per primary, neuro Afib: rate controlled - cont diltiazem - [id number] warrants AC, however given history of gait instability, falls likely not a candidate for AC - PT evaluation - cont aspirin EtOH, cocaine abuse: - manage per primary - denies recent use HTN: - cont diltiazem HLD: - cont statin
== END 2019-05-03 17:00 | DRG 552 ==
LOC: JER 22:29 → JERBED 04-29 03:03 → J4W 04-29 09:06 → J8W 05-01 00:32
PROVIDERS: ADMIT Internal Medicine; ATTEND Internal Medicine
DX: M47.27 Other spondylosis with radiculopathy, lumbosacral region (principal); J98.11 Atelectasis; F19.20 Other psychoactive substance dependence, uncomplicated; R41.82 Altered mental status, unspecified; I48.0 Paroxysmal atrial fibrillation; I10 Essential (primary) hypertension; Z86.73 Personal history of transient ischemic attack (TIA), and cerebral infarction without residual deficits; N40.0 Benign prostatic hyperplasia without lower urinary tract symptoms; R26.2 Difficulty in walking, not elsewhere classified; E78.5 Hyperlipidemia, unspecified
CPT/HCPCS: 36415; 70450-TC; 71046-TC-FY; 72132-TC; 73502-TC-LT-FY; 73502-TC-RT-FY; 73560-TC-RT-FY; 74176-TC; 80048; 80053; 80061; 80307; 81003; 82550; 82607; 82746; 82962; 83605; 83690; 83721; 83735; 84100; 84443; 84484; 85025; 93005; 93010; 93306-TC; 97116-GP; 97162-GP; 99285-25; J1644; J7030; Q2036; Q9967

== ENCOUNTER 2020-01-25 15:49 | Inpatient (IN) | payer OTHER ==
[2020-01-25 16:18] LABS: ARTERIAL BLD GAS O2 SATURATION 99.8 mmHg (95-98); ARTERIAL BLOOD GAS BASE EXCESS -0.4 mmol/L (-2-2); ARTERIAL BLOOD GAS PO2 373.6 mmHg (80-100); ARTERIAL BLOOD GAS pH 7.388 (7.350-7.450)
[2020-01-25 16:47] LABS: BASO % 0.6 % (0-2.0); EOS % 2.2 % (0-4.5); HEMATOCRIT 47.2 % (35.4-49); HEMOGLOBIN 15.4 GM/dL (11.7-16.9); MCHC 32.7 g/dl (32.0-35.9); MEAN CELL VOLUME 97.9 fl (80-96); MEAN PLT VOLUME 9.3 fl (7.5-11.1); MONO % 13.3 % (3.8-10.2); NEUT % 59.9 % (42.8-82.8); PLATELET COUNT 182 K/MM3 (134-434); RBC 4.82 M/mm3 (4.00-5.60); RDW 13.9 % (11.9-15.9)
[2020-01-25 16:56] LABS: INR 1.13 (0.83-1.09); PROTHROMBIN TIME (PATIENT) 13.6 SEC (9.7-13.0)
[2020-01-25 16:59] LABS: ACTIVATED PTT 31.8 SECONDS (25.2-36.5)
[2020-01-25] MEDS ORDERED: NALOXONE HCL 0.4 MG/ML VIAL IVPUSH ONE (17:03)
[2020-01-25 17:06] LABS: POTASSIUM 5.2 mmol/L (3.5-5.1)
[2020-01-25 17:08] LABS: ALBUMIN 4.2 g/dl (3.4-5.0); BLOOD UREA NITROGEN 16.2 mg/dL (7-18); CALCIUM 10.3 mg/dL (8.5-10.1)
[2020-01-25 17:12] LABS: CREATININE 1.1 mg/dL (0.55-1.3)
[2020-01-25 17:13] LABS: BILIRUBIN,TOTAL 0.6 mg/dL (0.2-1); TOT PROT 8.4 g/dl (6.4-8.2)
[2020-01-25] MEDS ORDERED: NALOXONE HCL 0.4 MG/ML VIAL ONE (17:13)
[2020-01-25] MEDS ORDERED: SODIUM CHLORIDE 1,000 ML IV STA (17:45)
[2020-01-25 17:55] LABS: PH,URINE 6.5 (5.0-8.0); URINE APPEARANCE CLEAR; URINE BILIRUBIN NEGATIVE (NEGATIVE); URINE COLOR YELLOW; URINE GLUCOSE (UA) NEGATIVE (NEGATIVE); URINE KETONE NEGATIVE (NEGATIVE); URINE LEUK ESTERASE NEGATIVE (NEGATIVE); URINE NITRITE NEGATIVE (NEGATIVE); URINE PROTEIN TRACE (NEGATIVE); URINE UROBILINOGEN 0.2 mg/dL (0.2-1.0)
[2020-01-25 20:26] LABS: URINE BARBITURATES NEGATIVE ng/ml (CUTOFF=200); URINE BENZODIAZEPINES NEGATIVE ng/ml (CUTOFF=200)
[2020-01-25 20:27] LABS: METHADONE, UR NEGATIVE ng/ml (CUTOFF=300); OPIATES, URI NEGATIVE ng/ml (CUTOFF=300); PHENCYCLIDINE,URINE NEGATIVE ng/ml (CUTOFF=25)
[2020-01-25 20:40] LABS: COCAINE, UR NEGATIVE ng/ml (CUTOFF=300); URINE AMPHETAMINES NEGATIVE ng/ml (CUTOFF=500)
[2020-01-26] MEDS ORDERED: LORazepam 2 MG/ML SDV VIAL IVPUSH ONE ×2 (04:06→04:34)
[2020-01-26] MEDS ORDERED: LORazepam 2 MG/ML SDV VIAL ONE (04:09)
[2020-01-26] MEDS ORDERED: levETIRAcetam 500 MG/5 ML INJECTION VIAL IVPB ONE ×3 (04:11→04:53)
[2020-01-26] MEDS ORDERED: MIDAZOLAM HCL 2 MG/2 ML SINGLE DOSE VIAL ONE (04:24)
[2020-01-26] MEDS ORDERED: MIDAZOLAM IN 0.9 % SOD.CHLORID 1 MG/1 ML PLAST..BAG ONE (04:24)
[2020-01-26] MEDS ORDERED: RAPID SEQUENCE INTUBATION KIT NR ONE (04:25)
[2020-01-26] MEDS ORDERED: ACETAMINOPHEN 1000 MG/100 ML VIAL (NON FORMULARY) IVPB ONE (04:35)
[2020-01-26] MEDS ORDERED: VANCOMYCIN 1 GM in D5W (PRE-DOCKED) 1,000 MG/250 ML IVPB ONE (04:37)
[2020-01-26] MEDS ORDERED: PIPERACILLIN/TAZOB 4.5 GM 4.5 GM in DEXTROSE 5%-WATER 100 ML IVPB ONE (04:37)
[2020-01-26] MEDS ORDERED: MIDAZOLAM 100 MG in SODIUM CHLORIDE 100 ML IVPB SCH ×2 (05:00→05:03)
[2020-01-26] MEDS: MIDAZOLAM IN 0.9 % SOD.CHLORID 100 MG/100 ML PLAST..BAG IVPB SCH ×2 (05:05→21:00)
[2020-01-26] MEDS ORDERED: PIPERACILLIN/TAZOB 4.5 GM 4.5 GM/100 ML BAG IVPB ONE (05:08)
[2020-01-26 05:35] LABS: CHLORIDE 108 mmol/L (98-107); SODIUM 136 mmol/L (136-145)
[2020-01-26 05:37] LABS: CALCIUM 9.7 mg/dL (8.5-10.1)
[2020-01-26 05:38] LABS: BLOOD UREA NITROGEN 18.1 mg/dL (7-18); CO2 22 mmol/L (21-32); GLUCOSE,RANDOM 127 mg/dL (74-106)
[2020-01-26 05:41] LABS: CREATININE 1.3 mg/dL (0.55-1.3); SGOT/AST 77 U/L (15-37)
[2020-01-26 05:42] LABS: BILIRUBIN,TOTAL 0.8 mg/dL (0.2-1); TOT PROT 8.7 g/dl (6.4-8.2)
[2020-01-26 05:44] LABS: ALK PHOS 145 U/L (45-117)
[2020-01-26 06:10] LABS: ANION GAP 6 MMOL/L (8-16); SGPT/ALT 32 U/L (13-61)
[2020-01-26 06:17] LABS: POTASSIUM 8.2 mmol/L (3.5-5.1)
[2020-01-26 07:04] LABS: BASO % 0.4 % (0-2.0); EOS % 0.2 % (0-4.5); HEMATOCRIT 38.8 % (35.4-49); HEMOGLOBIN 12.9 GM/dL (11.7-16.9); LYMPH % 6.6 % (8-40); MCH 32.1 pg (25.7-33.7); MCHC 33.4 g/dl (32.0-35.9); MEAN CELL VOLUME 96.2 fl (80-96); MEAN PLT VOLUME 9.1 fl (7.5-11.1); MONO % 8.9 % (3.8-10.2); NEUT % 83.9 % (42.8-82.8); PLATELET COUNT 166 K/MM3 (134-434); RBC 4.03 M/mm3 (4.00-5.60); RDW 13.7 % (11.9-15.9); WHITE BLOOD COUNT 8.7 K/mm3 (4.0-10.0)
[2020-01-26] MEDS: DEXTROSE 5%-0.45% SALINE 1,000 ML IV SCH (07:16)
[2020-01-26 07:49] LABS: POTASSIUM 4.2 mmol/L (3.5-5.1)
[2020-01-26 07:51] LABS: CALCIUM 8.6 mg/dL (8.5-10.1)
[2020-01-26 07:52] LABS: ALBUMIN 3.3 g/dl (3.4-5.0); BLOOD UREA NITROGEN 16.9 mg/dL (7-18); MAGNESIUM 1.7 mg/dL (1.8-2.4)
[2020-01-26 07:55] LABS: CREATININE 1.1 mg/dL (0.55-1.3)
[2020-01-26 07:56] LABS: BILIRUBIN,TOTAL 0.8 mg/dL (0.2-1)
[2020-01-26 08:03] LABS: TOT PROT 6.5 g/dl (6.4-8.2)
[2020-01-26] MEDS ORDERED: MAGNESIUM 1GM/D5W 100ML - 100 ML IVPB IVPB ONE (09:00)
[2020-01-26] MEDS: PROPOFOL 1,000,000 MCG/100 ML VIAL IVPB SCH (10:33)
[2020-01-26] MEDS: MUPIROCIN 2% TOPICAL OINTMENT FOR DECOLONIZATION NS SCH ×2 (11:00→22:14)
[2020-01-26] MEDS ORDERED: levETIRAcetam 500 MG/5 ML INJECTION VIAL IVPB SCH (12:30)
[2020-01-26] MEDS ORDERED: DEXTROSE 5%-WATER 100 ML IVPB ONE ×2 (15:12→17:18)
[2020-01-26] MEDS ORDERED: PIPERACILLIN/TAZOBACTAM 4.5 GM VIAL IVPB ONE ×2 (15:12→17:17)
[2020-01-26] MEDS: PIPERACILLIN/TAZOB 4.5 GM 4.5 GM in DEXTROSE 5%-WATER 100 ML IVPB SCH ×2 (15:14→18:22)
[2020-01-26] MEDS: CHLORHEXIDINE GLUCONATE 4% CLEANSER FOR DECOLONIZATION TP SCH (22:13)
[2020-01-26] MEDS: levETIRAcetam 500 MG/5 ML INJECTION VIAL IVPB SCH (22:13)
[2020-01-27] MEDS ORDERED: PIPERACILLIN/TAZOBACTAM 4.5 GM VIAL IVPB ONE ×4 (01:07→23:35)
[2020-01-27] MEDS ORDERED: DEXTROSE 5%-WATER 100 ML IVPB ONE ×4 (01:07→23:35)
[2020-01-27] MEDS: PIPERACILLIN/TAZOB 4.5 GM 4.5 GM in DEXTROSE 5%-WATER 100 ML IVPB SCH ×3 (01:34→18:04)
[2020-01-27 06:57] LABS: HEMATOCRIT 36.1 % (35.4-49); MCHC 33.3 g/dl (32.0-35.9); MEAN CELL VOLUME 96.1 fl (80-96); MEAN PLT VOLUME 8.9 fl (7.5-11.1); PLATELET COUNT 132 K/MM3 (134-434); RBC 3.76 M/mm3 (4.00-5.60); RDW 13.6 % (11.9-15.9); WHITE BLOOD COUNT 6.4 K/mm3 (4.0-10.0)
[2020-01-27] MEDS: DEXTROSE 5%-0.45% SALINE 1,000 ML IV SCH (07:11)
[2020-01-27 07:28] LABS: ALBUMIN 2.7 g/dl (3.4-5.0); CALCIUM 8.5 mg/dL (8.5-10.1); MAGNESIUM 2.3 mg/dL (1.8-2.4)
[2020-01-27 07:29] LABS: BLOOD UREA NITROGEN 13.9 mg/dL (7-18)
[2020-01-27 07:31] LABS: CREATININE 0.8 mg/dL (0.55-1.3); PHOSPHOROUS 2.8 mg/dL (2.5-4.9)
[2020-01-27 07:33] LABS: BILIRUBIN,TOTAL 0.6 mg/dL (0.2-1); TOT PROT 5.8 g/dl (6.4-8.2)
[2020-01-27] MEDS ORDERED: PT OWN MED DRAWER 7, Y5N ONE (09:55)
[2020-01-27] MEDS: levETIRAcetam 500 MG/5 ML INJECTION VIAL IVPB SCH ×2 (10:13→21:08)
[2020-01-27] MEDS: PROPOFOL 1,000,000 MCG/100 ML VIAL IVPB SCH (10:23)
[2020-01-27] MEDS: MUPIROCIN 2% TOPICAL OINTMENT FOR DECOLONIZATION NS SCH ×2 (10:24→21:07)
[2020-01-27] MEDS: THIAMINE HCL 200 MG/2 ML VIAL IVPB SCH ×2 (14:21→21:43)
[2020-01-27] MEDS: CHLORHEXIDINE GLUCONATE 4% CLEANSER FOR DECOLONIZATION TP SCH (21:07)
[2020-01-28] MEDS: PIPERACILLIN/TAZOB 4.5 GM 4.5 GM in DEXTROSE 5%-WATER 100 ML IVPB SCH ×2 (02:25→09:47)
[2020-01-28] MEDS: MIDAZOLAM IN 0.9 % SOD.CHLORID 100 MG/100 ML PLAST..BAG IVPB SCH (06:34)
[2020-01-28] MEDS: DEXTROSE 5%-0.45% SALINE 1,000 ML IV SCH (06:35)
[2020-01-28] MEDS: THIAMINE HCL 200 MG/2 ML VIAL IVPB SCH ×3 (06:35→22:39)
[2020-01-28 07:11] LABS: POTASSIUM 4.5 mmol/L (3.5-5.1)
[2020-01-28 07:12] LABS: HEMATOCRIT 40.8 % (35.4-49); HEMOGLOBIN 13.6 GM/dL (11.7-16.9); MCH 32.6 pg (25.7-33.7); MCHC 33.3 g/dl (32.0-35.9); MEAN CELL VOLUME 98.1 fl (80-96); MEAN PLT VOLUME 9.2 fl (7.5-11.1); PLATELET COUNT 141 K/MM3 (134-434); RBC 4.16 M/mm3 (4.00-5.60); RDW 13.8 % (11.9-15.9); WHITE BLOOD COUNT 7.3 K/mm3 (4.0-10.0)
[2020-01-28 07:13] LABS: CALCIUM 8.8 mg/dL (8.5-10.1)
[2020-01-28 07:14] LABS: ALBUMIN 2.7 g/dl (3.4-5.0); BLOOD UREA NITROGEN 10.6 mg/dL (7-18); MAGNESIUM 2.2 mg/dL (1.8-2.4)
[2020-01-28 07:17] LABS: CREATININE 0.8 mg/dL (0.55-1.3)
[2020-01-28 07:18] LABS: BILIRUBIN,TOTAL 0.4 mg/dL (0.2-1)
[2020-01-28] MEDS ORDERED: DEXTROSE 5%-WATER 100 ML IVPB ONE (09:46)
[2020-01-28] MEDS ORDERED: PIPERACILLIN/TAZOBACTAM 4.5 GM VIAL IVPB ONE (09:46)
[2020-01-28] MEDS: levETIRAcetam 500 MG/5 ML INJECTION VIAL IVPB SCH ×2 (09:47→22:10)
[2020-01-28] MEDS: MUPIROCIN 2% TOPICAL OINTMENT FOR DECOLONIZATION NS SCH ×2 (09:47→22:49)
[2020-01-28] MEDS ORDERED: ASPIRIN 81 MG CHEWABLE TABLETS PO SCH (14:00)
[2020-01-28] MEDS: PROPOFOL 1,000,000 MCG/100 ML VIAL IVPB SCH (14:11)
[2020-01-28] MEDS ORDERED: ASPIRIN 81 MG CHEWABLE TABLETS PO ONE (14:22)
[2020-01-28] MEDS ORDERED: DEXTROSE 50%-WATER - 25 GM/50 ML VIAL IVPUSH ONE (16:21)
[2020-01-28] MEDS ORDERED: DEXTROSE 50%-WATER 25 GM/50 ML DISP.SYRIN ONE (16:22)
[2020-01-28] MEDS ORDERED: ATORVASTATIN CA 40 MG TABLET (FP) PO SCH (22:00)
[2020-01-28] MEDS: CHLORHEXIDINE GLUCONATE 4% CLEANSER FOR DECOLONIZATION TP SCH (22:10)
[2020-01-28] MEDS ORDERED: levETIRAcetam 500 MG/5 ML INJECTION VIAL IVPB SCH (22:30)
[2020-01-29] MEDS ORDERED: DEXTROSE 50%-WATER - 25 GM/50 ML VIAL IVPUSH ONE (05:36)
[2020-01-29] MEDS ORDERED: DEXTROSE 50%-WATER 25 GM/50 ML DISP.SYRIN ONE (05:38)
[2020-01-29] MEDS: THIAMINE HCL 200 MG/2 ML VIAL IVPB SCH ×3 (05:48→22:01)
[2020-01-29] MEDS: DEXTROSE 5%-0.45% SALINE 1,000 ML IV SCH ×2 (06:44→07:16)
[2020-01-29] MEDS: ASPIRIN 81 MG CHEWABLE TABLETS GT SCH (09:01)
[2020-01-29] MEDS: MUPIROCIN 2% TOPICAL OINTMENT FOR DECOLONIZATION NS SCH ×2 (09:01→21:14)
[2020-01-29] MEDS: levETIRAcetam 500 MG/5 ML INJECTION VIAL IVPB SCH ×2 (09:01→21:14)
[2020-01-29 09:17] LABS: HEMATOCRIT 38.2 % (35.4-49); MCH 32.7 pg (25.7-33.7); MCHC 34.1 g/dl (32.0-35.9); MEAN PLT VOLUME 9.4 fl (7.5-11.1); PLATELET COUNT 136 K/MM3 (134-434); RBC 3.98 M/mm3 (4.00-5.60); RDW 13.7 % (11.9-15.9); WHITE BLOOD COUNT 5.3 K/mm3 (4.0-10.0)
[2020-01-29] MEDS ORDERED: HEPARIN NA (PORCINE) 5,000 UNITS/ML 1ML VIAL IVPUSH PRN ×2 (09:20)
[2020-01-29 09:27] LABS: POTASSIUM 3.8 mmol/L (3.5-5.1)
[2020-01-29 09:30] LABS: ALBUMIN 2.6 g/dl (3.4-5.0); BLOOD UREA NITROGEN 6.7 mg/dL (7-18); CALCIUM 8.8 mg/dL (8.5-10.1); MAGNESIUM 1.9 mg/dL (1.8-2.4)
[2020-01-29 09:33] LABS: PHOSPHOROUS 2.3 mg/dL (2.5-4.9)
[2020-01-29 09:34] LABS: CREATININE 0.7 mg/dL (0.55-1.3)
[2020-01-29 09:35] LABS: BILIRUBIN,TOTAL 0.6 mg/dL (0.2-1); TOT PROT 5.9 g/dl (6.4-8.2)
[2020-01-29] MEDS ORDERED: ASPIRIN 81 MG CHEWABLE TABLETS PO SCH (10:00)
[2020-01-29] MEDS: HEPARIN INFUSION - 25,000 UNITS/500 ML INFUS.BAG IVPB SCH (10:42)
[2020-01-29] MEDS: ATORVASTATIN CA 40 MG TABLET (FP) GT SCH (21:14)
[2020-01-29] MEDS: CHLORHEXIDINE GLUCONATE 4% CLEANSER FOR DECOLONIZATION TP SCH (21:14)
[2020-01-30] MEDS: FENTANYL IVPB 500 MCG/100 ML BAG IVPB SCH ×2 (02:42→22:12)
[2020-01-30] MEDS: THIAMINE HCL 200 MG/2 ML VIAL IVPB SCH (06:08)
[2020-01-30] MEDS: DEXTROSE 5%-0.45% SALINE 1,000 ML IV SCH ×2 (09:00→22:11)
[2020-01-30] MEDS: levETIRAcetam 500 MG/5 ML INJECTION VIAL IVPB SCH ×2 (09:28→22:07)
[2020-01-30] MEDS: ASPIRIN 81 MG CHEWABLE TABLETS GT SCH (09:28)
[2020-01-30] MEDS: MUPIROCIN 2% TOPICAL OINTMENT FOR DECOLONIZATION NS SCH ×2 (09:29→22:07)
[2020-01-30] MEDS: HEPARIN INFUSION - 25,000 UNITS/500 ML INFUS.BAG IVPB SCH ×2 (11:39→22:11)
[2020-01-30 17:31] LABS: HEMATOCRIT 36.3 % (35.4-49); HEMOGLOBIN 12.1 GM/dL (11.7-16.9); MCH 32.6 pg (25.7-33.7); MCHC 33.4 g/dl (32.0-35.9); MEAN CELL VOLUME 97.4 fl (80-96); MEAN PLT VOLUME 9.2 fl (7.5-11.1); PLATELET COUNT 148 K/MM3 (134-434); RBC 3.73 M/mm3 (4.00-5.60); RDW 13.4 % (11.9-15.9); WHITE BLOOD COUNT 5.5 K/mm3 (4.0-10.0)
[2020-01-30 17:52] LABS: POTASSIUM 3.7 mmol/L (3.5-5.1)
[2020-01-30 17:53] LABS: CALCIUM 8.9 mg/dL (8.5-10.1)
[2020-01-30 17:54] LABS: BLOOD UREA NITROGEN 4.5 mg/dL (7-18)
[2020-01-30 17:57] LABS: CREATININE 0.7 mg/dL (0.55-1.3)
[2020-01-30] MEDS: CHLORHEXIDINE GLUCONATE 4% CLEANSER FOR DECOLONIZATION TP SCH (22:07)
[2020-01-30] MEDS: ATORVASTATIN CA 40 MG TABLET (FP) GT SCH (22:08)
[2020-01-31] MEDS: FENTANYL IVPB 500 MCG/100 ML BAG IVPB SCH ×2 (05:28→17:55)
[2020-01-31 07:24] LABS: HEMATOCRIT 31.8 % (35.4-49); HEMOGLOBIN 10.6 GM/dL (11.7-16.9); MCHC 33.4 g/dl (32.0-35.9); MEAN CELL VOLUME 95.9 fl (80-96); MEAN PLT VOLUME 9.7 fl (7.5-11.1); PLATELET COUNT 136 K/MM3 (134-434); RBC 3.31 M/mm3 (4.00-5.60); RDW 13.4 % (11.9-15.9); WHITE BLOOD COUNT 6.2 K/mm3 (4.0-10.0)
[2020-01-31] MEDS: levETIRAcetam 500 MG/5 ML INJECTION VIAL IVPB SCH ×2 (09:00→21:52)
[2020-01-31] MEDS: ASPIRIN 81 MG CHEWABLE TABLETS GT SCH (09:03)
[2020-01-31] MEDS: DEXTROSE 5%-0.45% SALINE 1,000 ML IV SCH (11:00)
[2020-01-31] MEDS ORDERED: ACETAMINOPHEN 1000 MG/100 ML VIAL (NON FORMULARY) IVPB ONE (17:41)
[2020-01-31] MEDS: HEPARIN INFUSION - 25,000 UNITS/500 ML INFUS.BAG IVPB SCH (17:54)
[2020-01-31] MEDS: CHLORHEXIDINE GLUCONATE 4% CLEANSER FOR DECOLONIZATION TP SCH (21:49)
[2020-01-31] MEDS: ATORVASTATIN CA 40 MG TABLET (FP) GT SCH (21:49)
[2020-02-01] MEDS: DEXTROSE 5%-0.45% SALINE 1,000 ML IV SCH (01:19)
[2020-02-01 06:45] LABS: BASO % 0.3 % (0-2.0); EOS % 1.3 % (0-4.5); HEMATOCRIT 33.1 % (35.4-49); LYMPH % 9.9 % (8-40); MCH 31.9 pg (25.7-33.7); MCHC 33.3 g/dl (32.0-35.9); MEAN PLT VOLUME 9.5 fl (7.5-11.1); MONO % 13.1 % (3.8-10.2); NEUT % 75.4 % (42.8-82.8); PLATELET COUNT 156 K/MM3 (134-434); RBC 3.45 M/mm3 (4.00-5.60); RDW 13.5 % (11.9-15.9); WHITE BLOOD COUNT 9.1 K/mm3 (4.0-10.0)
[2020-02-01 07:05] LABS: POTASSIUM 4.1 mmol/L (3.5-5.1)
[2020-02-01 07:17] LABS: BLOOD UREA NITROGEN 7.7 mg/dL (7-18); CALCIUM 8.7 mg/dL (8.5-10.1)
[2020-02-01 07:18] LABS: ALBUMIN 2.5 g/dl (3.4-5.0)
[2020-02-01 07:21] LABS: CREATININE 0.8 mg/dL (0.55-1.3)
[2020-02-01 07:23] LABS: BILIRUBIN,TOTAL 0.5 mg/dL (0.2-1); TOT PROT 5.7 g/dl (6.4-8.2)
[2020-02-01] MEDS: HEPARIN INFUSION - 25,000 UNITS/500 ML INFUS.BAG IVPB SCH (09:00)
[2020-02-01] MEDS: ASPIRIN 81 MG CHEWABLE TABLETS GT SCH (10:52)
[2020-02-01] MEDS: levETIRAcetam 500 MG/5 ML INJECTION VIAL IVPB SCH ×2 (10:52→21:22)
[2020-02-01] MEDS: ATORVASTATIN CA 40 MG TABLET (FP) GT SCH (21:22)
[2020-02-01] MEDS: CHLORHEXIDINE GLUCONATE 4% CLEANSER FOR DECOLONIZATION TP SCH (21:22)
[2020-02-01] MEDS ORDERED: ACETAMINOPHEN INJECTION 100 ML IVPB ONE (22:24)
[2020-02-01] MEDS: ACETAMINOPHEN 1000 MG/100 ML VIAL (NON FORMULARY) IVPB PRN (22:25)
[2020-02-02] MEDS: DEXTROSE 5%-0.45% SALINE 1,000 ML IV SCH ×2 (02:38→13:49)
[2020-02-02] MEDS: ACETAMINOPHEN 1000 MG/100 ML VIAL (NON FORMULARY) IVPB PRN ×2 (04:04→13:49)
[2020-02-02] MEDS: HEPARIN INFUSION - 25,000 UNITS/500 ML INFUS.BAG IVPB SCH ×2 (05:30→10:20)
[2020-02-02 07:15] LABS: HEMATOCRIT 29.9 % (35.4-49); HEMOGLOBIN 10.3 GM/dL (11.7-16.9); MCH 32.7 pg (25.7-33.7); MCHC 34.3 g/dl (32.0-35.9); MEAN CELL VOLUME 95.6 fl (80-96); MEAN PLT VOLUME 9.7 fl (7.5-11.1); PLATELET COUNT 147 K/MM3 (134-434); RBC 3.13 M/mm3 (4.00-5.60); RDW 13.5 % (11.9-15.9); WHITE BLOOD COUNT 9.3 K/mm3 (4.0-10.0)
[2020-02-02] MEDS ORDERED: SCOPOLAMINE HYDROBROMIDE 1 PATCH PATCH.TD72 TD SCH (10:00)
[2020-02-02] MEDS: ASPIRIN 81 MG CHEWABLE TABLETS GT SCH (10:18)
[2020-02-02] MEDS: levETIRAcetam 500 MG/5 ML INJECTION VIAL IVPB SCH (10:19)
[2020-02-02] MEDS ORDERED: cefTRIAXone SODIUM 1 GM VIAL ONE (13:29)
[2020-02-02] MEDS ORDERED: DEXTROSE 5%-WATER - 50 ML IVPB ONE (13:29)
[2020-02-02] MEDS: CEFTRIAXONE 1 GM in DEXTROSE 5%-WATER - 50 ML IVPB SCH (13:43)
[2020-02-02] MEDS ORDERED: ACETAMINOPHEN 1000 MG/100 ML VIAL (NON FORMULARY) IVPB ONE (22:38)
[2020-02-02] MEDS: ENOXAPARIN NA (PORCINE) 80 MG/0.8 ML DISP.SYRIN SQ SCH (22:39)
[2020-02-02] MEDS: CHLORHEXIDINE GLUCONATE 4% CLEANSER FOR DECOLONIZATION TP SCH (22:39)
[2020-02-02] MEDS: ATORVASTATIN CA 40 MG TABLET (FP) GT SCH (22:39)
[2020-02-02] MEDS ORDERED: levETIRAcetam 500 MG/5 ML INJECTION VIAL IVPB ONE (22:41)
[2020-02-02] MEDS: levETIRAcetam 500 MG/5 ML ORAL SOLUTION (UNIT-DOSE CUPS) GT SCH (22:43)
[2020-02-02] MEDS ORDERED: PT OWN MED DRAWER 7, Y5N ONE (22:47)
[2020-02-03] MEDS: ACETAMINOPHEN 650 MG/20.3 ML ORAL SOLUTION (CUPS) GT PRN ×3 (06:01→22:37)
[2020-02-03 07:22] LABS: HEMATOCRIT 31.8 % (35.4-49); HEMOGLOBIN 10.6 GM/dL (11.7-16.9); MCHC 33.4 g/dl (32.0-35.9); MEAN CELL VOLUME 95.7 fl (80-96); MEAN PLT VOLUME 9.6 fl (7.5-11.1); PLATELET COUNT 172 K/MM3 (134-434); RBC 3.32 M/mm3 (4.00-5.60); RDW 13.2 % (11.9-15.9); WHITE BLOOD COUNT 9.8 K/mm3 (4.0-10.0)
[2020-02-03] MEDS ORDERED: cefTRIAXone SODIUM 1 GM VIAL ONE (09:39)
[2020-02-03] MEDS ORDERED: DEXTROSE 5%-WATER - 50 ML IVPB ONE (09:39)
[2020-02-03] MEDS: ENOXAPARIN NA (PORCINE) 80 MG/0.8 ML DISP.SYRIN SQ SCH ×2 (10:01→21:45)
[2020-02-03] MEDS: ASPIRIN 81 MG CHEWABLE TABLETS GT SCH (10:02)
[2020-02-03] MEDS: CEFTRIAXONE 1 GM in DEXTROSE 5%-WATER - 50 ML IVPB SCH (10:02)
[2020-02-03] MEDS ORDERED: PT OWN MED DRAWER 7, Y5N ONE ×4 (11:12→21:50)
[2020-02-03] MEDS: levETIRAcetam 500 MG/5 ML ORAL SOLUTION (UNIT-DOSE CUPS) GT SCH ×2 (11:13→21:45)
[2020-02-03] MEDS: AMPICILLIN NA/SULBACTAM NA 3 GM in SODIUM CHLORIDE 100 ML IVPB SCH ×2 (16:31→21:44)
[2020-02-03] MEDS: CHLORHEXIDINE GLUCONATE 4% CLEANSER FOR DECOLONIZATION TP SCH (21:44)
[2020-02-03] MEDS: ATORVASTATIN CA 40 MG TABLET (FP) GT SCH (21:45)
[2020-02-04] MEDS ORDERED: PT OWN MED DRAWER 7, Y5N ONE ×4 (02:47→19:58)
[2020-02-04] MEDS: AMPICILLIN NA/SULBACTAM NA 3 GM in SODIUM CHLORIDE 100 ML IVPB SCH ×4 (02:49→21:13)
[2020-02-04] MEDS ORDERED: ACETAMINOPHEN 1000 MG/100 ML VIAL (NON FORMULARY) IVPB PRN (03:19)
[2020-02-04 07:21] LABS: HEMATOCRIT 31.2 % (35.4-49); HEMOGLOBIN 10.4 GM/dL (11.7-16.9); MCHC 33.4 g/dl (32.0-35.9); MEAN CELL VOLUME 95.9 fl (80-96); PLATELET COUNT 180 K/MM3 (134-434); RBC 3.25 M/mm3 (4.00-5.60); RDW 13.3 % (11.9-15.9); WHITE BLOOD COUNT 10.2 K/mm3 (4.0-10.0)
[2020-02-04 07:22] LABS: MEAN PLT VOLUME 10.3 fl (7.5-11.1)
[2020-02-04 07:35] LABS: POTASSIUM 4.4 mmol/L (3.5-5.1)
[2020-02-04] MEDS ORDERED: LABETALOL HCL 5 MG/1 ML (100MG/20 ML VIAL) IVPUSH PRN (07:44)
[2020-02-04 07:45] LABS: CALCIUM 8.9 mg/dL (8.5-10.1)
[2020-02-04 07:46] LABS: ALBUMIN 2.3 g/dl (3.4-5.0); BLOOD UREA NITROGEN 12.9 mg/dL (7-18)
[2020-02-04 07:49] LABS: CREATININE 0.7 mg/dL (0.55-1.3); PHOSPHOROUS 2.9 mg/dL (2.5-4.9)
[2020-02-04 07:51] LABS: BILIRUBIN,TOTAL 0.7 mg/dL (0.2-1); TOT PROT 5.8 g/dl (6.4-8.2)
[2020-02-04] MEDS: ASPIRIN 81 MG CHEWABLE TABLETS GT SCH (09:25)
[2020-02-04] MEDS: ENOXAPARIN NA (PORCINE) 80 MG/0.8 ML DISP.SYRIN SQ SCH (09:26)
[2020-02-04] MEDS: levETIRAcetam 500 MG/5 ML ORAL SOLUTION (UNIT-DOSE CUPS) GT SCH ×2 (09:27→21:17)
[2020-02-04] MEDS: VALSARTAN 80 MG TABLET GT SCH (12:10)
[2020-02-04] MEDS: METOPROLOL TARTRATE 25 MG TABLET (FP) NGT SCH ×4 (15:19→23:24)
[2020-02-04] MEDS: amLODIPine BESYLATE 10 MG TABLET (FP) PO SCH (18:04)
[2020-02-04] MEDS: ATORVASTATIN CA 40 MG TABLET (FP) GT SCH (21:14)
[2020-02-04] MEDS: APIXABAN 5 MG TABLET PO SCH (21:16)
[2020-02-04] MEDS: ACETAMINOPHEN 650 MG/20.3 ML ORAL SOLUTION (CUPS) GT PRN (21:16)
[2020-02-04] MEDS: CHLORHEXIDINE GLUCONATE 4% CLEANSER FOR DECOLONIZATION TP SCH (21:16)
[2020-02-05] MEDS ORDERED: PT OWN MED DRAWER 7, Y5N ONE ×3 (01:47→15:13)
[2020-02-05] MEDS: AMPICILLIN NA/SULBACTAM NA 3 GM in SODIUM CHLORIDE 100 ML IVPB SCH ×4 (02:04→21:46)
[2020-02-05] MEDS: METOPROLOL TARTRATE 25 MG TABLET (FP) NGT SCH ×4 (05:11→23:40)
[2020-02-05 07:32] LABS: BASO % 0.4 % (0-2.0); EOS % 0.9 % (0-4.5); HEMATOCRIT 29.4 % (35.4-49); HEMOGLOBIN 9.8 GM/dL (11.7-16.9); LYMPH % 16.1 % (8-40); MCH 32.2 pg (25.7-33.7); MCHC 33.3 g/dl (32.0-35.9); MEAN CELL VOLUME 96.9 fl (80-96); MEAN PLT VOLUME 9.6 fl (7.5-11.1); MONO % 10.5 % (3.8-10.2); NEUT % 72.1 % (42.8-82.8); PLATELET COUNT 184 K/MM3 (134-434); RBC 3.04 M/mm3 (4.00-5.60); RDW 13.6 % (11.9-15.9); WHITE BLOOD COUNT 8.8 K/mm3 (4.0-10.0)
[2020-02-05 07:57] LABS: POTASSIUM 4.3 mmol/L (3.5-5.1)
[2020-02-05 08:10] LABS: BLOOD UREA NITROGEN 16.1 mg/dL (7-18); CREATININE 0.8 mg/dL (0.55-1.3); PHOSPHOROUS 2.9 mg/dL (2.5-4.9)
[2020-02-05 08:11] LABS: CALCIUM 8.4 mg/dL (8.5-10.1); TOT PROT 5.6 g/dl (6.4-8.2)
[2020-02-05 08:18] LABS: BILIRUBIN,TOTAL 0.6 mg/dL (0.2-1)
[2020-02-05] MEDS: APIXABAN 5 MG TABLET PO SCH ×2 (09:21→21:46)
[2020-02-05] MEDS: VALSARTAN 80 MG TABLET GT SCH (09:21)
[2020-02-05] MEDS: amLODIPine BESYLATE 10 MG TABLET (FP) PO SCH (09:21)
[2020-02-05] MEDS: levETIRAcetam 500 MG/5 ML ORAL SOLUTION (UNIT-DOSE CUPS) GT SCH ×2 (09:21→21:46)
[2020-02-05] MEDS: ACETAMINOPHEN 650 MG/20.3 ML ORAL SOLUTION (CUPS) GT PRN (11:49)
[2020-02-05] MEDS: ATORVASTATIN CA 40 MG TABLET (FP) GT SCH (21:46)
[2020-02-05] MEDS: CHLORHEXIDINE GLUCONATE 4% CLEANSER FOR DECOLONIZATION TP SCH (21:46)
[2020-02-06] MEDS: ACETAMINOPHEN 650 MG/20.3 ML ORAL SOLUTION (CUPS) GT PRN ×2 (02:11→22:54)
[2020-02-06] MEDS: AMPICILLIN NA/SULBACTAM NA 3 GM in SODIUM CHLORIDE 100 ML IVPB SCH ×4 (02:54→21:15)
[2020-02-06] MEDS: METOPROLOL TARTRATE 25 MG TABLET (FP) NGT SCH ×3 (06:00→17:16)
[2020-02-06 07:30] LABS: HEMOGLOBIN 10.7 GM/dL (11.7-16.9); MCH 32.1 pg (25.7-33.7); MCHC 33.3 g/dl (32.0-35.9); MEAN CELL VOLUME 96.4 fl (80-96); MEAN PLT VOLUME 9.4 fl (7.5-11.1); PLATELET COUNT 206 K/MM3 (134-434); RBC 3.32 M/mm3 (4.00-5.60); RDW 13.5 % (11.9-15.9); WHITE BLOOD COUNT 10.4 K/mm3 (4.0-10.0)
[2020-02-06 08:00] LABS: POTASSIUM 4.3 mmol/L (3.5-5.1)
[2020-02-06 08:09] LABS: BLOOD UREA NITROGEN 17.5 mg/dL (7-18)
[2020-02-06 08:13] LABS: CREATININE 0.7 mg/dL (0.55-1.3)
[2020-02-06] MEDS ORDERED: levETIRAcetam 500 MG/5 ML ORAL SOLUTION (UNIT-DOSE CUPS) GT SCH (10:00)
[2020-02-06] MEDS ORDERED: VALSARTAN 80 MG TABLET GT SCH (10:00)
[2020-02-06] MEDS ORDERED: VALSARTAN 80 MG TABLET NGT ONE (10:04)
[2020-02-06] MEDS: amLODIPine BESYLATE 10 MG TABLET (FP) PO SCH (10:08)
[2020-02-06] MEDS: APIXABAN 5 MG TABLET PO SCH ×2 (10:08→22:55)
[2020-02-06] MEDS ORDERED: LORazepam 2 MG/ML SDV VIAL IVPUSH ONE ×2 (11:23→14:19)
[2020-02-06] MEDS ORDERED: PT OWN MED DRAWER 7, Y5N ONE (21:08)
[2020-02-06] MEDS: LORazepam 2 MG/ML SDV VIAL IVPUSH PRN (22:14)
[2020-02-06] MEDS: levETIRAcetam 500 MG/5 ML ORAL SOLUTION (UNIT-DOSE CUPS) GT SCH (22:54)
[2020-02-06] MEDS: ATORVASTATIN CA 40 MG TABLET (FP) GT SCH (22:55)
[2020-02-07] MEDS: METOPROLOL TARTRATE 25 MG TABLET (FP) NGT SCH ×4 (00:16→17:04)
[2020-02-07] MEDS ORDERED: PT OWN MED DRAWER 7, Y5N ONE ×3 (02:19→21:27)
[2020-02-07] MEDS: AMPICILLIN NA/SULBACTAM NA 3 GM in SODIUM CHLORIDE 100 ML IVPB SCH ×4 (02:29→21:35)
[2020-02-07 07:30] LABS: BASO % 0.4 % (0-2.0); EOS % 1.2 % (0-4.5); HEMATOCRIT 32.8 % (35.4-49); HEMOGLOBIN 10.7 GM/dL (11.7-16.9); LYMPH % 17.2 % (8-40); MCH 31.9 pg (25.7-33.7); MCHC 32.7 g/dl (32.0-35.9); MEAN CELL VOLUME 97.6 fl (80-96); MEAN PLT VOLUME 9.2 fl (7.5-11.1); NEUT % 71.2 % (42.8-82.8); PLATELET COUNT 213 K/MM3 (134-434); RBC 3.36 M/mm3 (4.00-5.60); RDW 13.4 % (11.9-15.9); WHITE BLOOD COUNT 10.4 K/mm3 (4.0-10.0)
[2020-02-07 07:46] LABS: POTASSIUM 4.3 mmol/L (3.5-5.1)
[2020-02-07 07:49] LABS: BLOOD UREA NITROGEN 17.4 mg/dL (7-18); CALCIUM 8.7 mg/dL (8.5-10.1)
[2020-02-07 07:50] LABS: ALBUMIN 2.4 g/dl (3.4-5.0)
[2020-02-07 07:52] LABS: CREATININE 0.8 mg/dL (0.55-1.3)
[2020-02-07 07:54] LABS: BILIRUBIN,TOTAL 0.5 mg/dL (0.2-1); TOT PROT 6.4 g/dl (6.4-8.2)
[2020-02-07] MEDS ORDERED: VALSARTAN 160 MG TABLET NGT SCH (10:00)
[2020-02-07] MEDS ORDERED: ACETAMINOPHEN 1000 MG/100 ML VIAL (NON FORMULARY) IVPB ONE (11:15)
[2020-02-07] MEDS: amLODIPine BESYLATE 10 MG TABLET (FP) PO SCH (11:36)
[2020-02-07] MEDS: APIXABAN 5 MG TABLET PO SCH ×2 (11:36→21:36)
[2020-02-07] MEDS: levETIRAcetam 500 MG/5 ML ORAL SOLUTION (UNIT-DOSE CUPS) GT SCH ×2 (11:37→21:36)
[2020-02-07 16:21] VITALS: BMI 29.6
[2020-02-07] MEDS: ACETAMINOPHEN 650 MG/20.3 ML ORAL SOLUTION (CUPS) GT PRN (17:03)
[2020-02-07] MEDS: LORazepam 2 MG/ML SDV VIAL IVPUSH PRN (17:10)
[2020-02-07] MEDS: ATORVASTATIN CA 40 MG TABLET (FP) GT SCH (21:36)
[2020-02-08] MEDS: ACETAMINOPHEN 650 MG/20.3 ML ORAL SOLUTION (CUPS) GT PRN (00:40)
[2020-02-08] MEDS: METOPROLOL TARTRATE 25 MG TABLET (FP) NGT SCH (00:40)
[2020-02-08] MEDS ORDERED: PT OWN MED DRAWER 7, Y5N ONE (02:07)
[2020-02-08] MEDS: AMPICILLIN NA/SULBACTAM NA 3 GM in SODIUM CHLORIDE 100 ML IVPB SCH (02:14)
[2020-02-08] MEDS ORDERED: ACETAMINOPHEN 650 MG/20.3 ML ORAL SOLUTION (CUPS) GT ONE (02:14)
[2020-02-08] MEDS ORDERED: ACETAMINOPHEN 650 MG/20.3 ML ORAL SOLUTION (CUPS) GT PRN (07:12)
[2020-02-08] MEDS ORDERED: LORazepam 2 MG/ML SDV VIAL IVPUSH PRN (07:12)
[2020-02-08] MEDS ORDERED: morphine SULFATE 4 MG/ML VIAL IVPUSH PRN (07:58)
[2020-02-08] MEDS ORDERED: PIPERACILLIN/TAZOB 4.5 GM 4.5 GM in DEXTROSE 5%-WATER 100 ML IVPB SCH (10:00)
[2020-02-08] MEDS ORDERED: APIXABAN 5 MG TABLET PO SCH (10:00)
[2020-02-08] MEDS ORDERED: levETIRAcetam 500 MG/5 ML ORAL SOLUTION (UNIT-DOSE CUPS) GT SCH (10:00)
[2020-02-08] MEDS ORDERED: amLODIPine BESYLATE 10 MG TABLET (FP) PO SCH (10:00)
[2020-02-08] MEDS ORDERED: VALSARTAN 160 MG TABLET NGT SCH (10:00)
[2020-02-08] MEDS ORDERED: METOPROLOL TARTRATE 25 MG TABLET (FP) NGT SCH (12:00)
[2020-02-08 13:52] VITALS: BP 86/62; PULSE 121; TEMP 100
[2020-02-08] MEDS ORDERED: ATORVASTATIN CA 40 MG TABLET (FP) GT SCH (22:00)
== END 2020-02-08 16:44 | disposition hospice, inpatient (51) | DRG 207 ==
LOC: JER 15:49 → JERBED 21:13 → JICU 01-26 09:24 → J7W 02-05 23:28 → J4W 02-08 07:43
PROVIDERS: ADMIT Internal Medicine; ATTEND Family Medicine
PROC: 5A1955Z Respiratory Ventilation, Greater than 96 Consecutive Hours (ICD-10-PCS; principal; 2020-01-25)
PROC: 0BH17EZ Insertion of Endotracheal Airway into Trachea, Via Natural or Artificial Opening (ICD-10-PCS; 2020-01-25)
PROC: 0DH67UZ Insertion of Feeding Device into Stomach, Via Natural or Artificial Opening (ICD-10-PCS; 2020-01-25)
PROC: 3E0G76Z Introduction of Nutritional Substance into Upper GI, Via Natural or Artificial Opening (ICD-10-PCS; 2020-01-25)
PROC: 05HB33Z Insertion of Infusion Device into Right Basilic Vein, Percutaneous Approach (ICD-10-PCS; 2020-01-30)
PROC: B54MZZA Ultrasonography of Right Upper Extremity Veins, Guidance (ICD-10-PCS; 2020-01-30)
DX: J96.01 Acute respiratory failure with hypoxia (principal); J69.0 Pneumonitis due to inhalation of food and vomit; I63.9 Cerebral infarction, unspecified; E87.2 Acidosis; N17.9 Acute kidney failure, unspecified; I48.20 Chronic atrial fibrillation, unspecified; E44.0 Moderate protein-calorie malnutrition; J98.11 Atelectasis; G40.901 Epilepsy, unspecified, not intractable, with status epilepticus; E87.5 Hyperkalemia; E87.6 Hypokalemia; I10 Essential (primary) hypertension; E78.5 Hyperlipidemia, unspecified; R55 Syncope and collapse; E16.2 Hypoglycemia, unspecified; Z66 Do not resuscitate; E88.09 Other disorders of plasma-protein metabolism, not elsewhere classified; A49.01 Methicillin susceptible Staphylococcus aureus infection, unspecified site
CPT/HCPCS: 36415; 36600; 70450-TC; 71045-TC-FY; 80048; 80053; 80177; 80307; 81003; 82140; 82550; 82553; 82803; 82962; 83605; 83735; 84100; 84484; 85025; 85027; 85610; 85730; 87040; 87070; 87086; 87186; 87205; 93005; 93010; 93306-TC; 93880-TC; 94002; 97162-GP; 99285-25; C9803; J0131; J1644; U0003